=== PATIENT | male | born 1950 | race Caucasian/White ===

== ENCOUNTER 2021-10-25 08:52 | Emergency (ER) | payer OTHER ==
[~2021-10-25] VITALS: Ht 172.7 cm; Wt 136.4 kg
[2021-10-25 09:00] VITALS: BP 197/93
[2021-10-25] MEDS ORDERED: AMOX-580 PO (09:46)
== END 2021-10-25 10:04 | disposition home or self-care (01) ==
LOC: ER 08:53
DX: K04.7 Periapical abscess without sinus (principal); R68.84 Jaw pain; G89.29 Other chronic pain; Z79.2 Long term (current) use of antibiotics
CPT/HCPCS: 99283

== ENCOUNTER 2022-03-25 19:58 | Emergency (ER) | payer OTHER ==
[~2022-03-25] VITALS: Ht 175.3 cm; Wt 136.4 kg
[2022-03-25 20:30] LABS: BASOPHILS % (AUTO) 0.3 % (0-1); EOSINOPHILS # (AUTO) 0.1 X10'3 (0-0.9); EOSINOPHILS % (AUTO) 1.2 % (0-6); HEMATOCRIT 38.9 % (42.0-52.0); LYMPHOCYTES # (AUTO) 1.8 X10'3 (1.1-4.8); LYMPHOCYTES % (AUTO) 15.2 % (21-51); MEAN CORPUSCULAR HEMOGLOBIN 31.1 PG (27.0-31.0); MEAN CORPUSCULAR HGB CONC 33.5 g/dL (33.0-36.5); MEAN CORPUSCULAR VOLUME 92.9 FL (78-98); MEAN PLATELET VOLUME 8.9 FL (7.4-10.4); MONOCYTES # (AUTO) 0.7 X10'3 (0-0.9); MONOCYTES % (AUTO) 6.4 % (2-12); NEUTROPHILS # (AUTO) 8.9 X10'3 (1.8-7.7); NEUTROPHILS % (AUTO) 76.9 % (42-75); PLATELET COUNT 188 X10'3 (140-440); RED BLOOD COUNT 4.19 X10'6 (4.70-6.10); RED CELL DISTRIBUTION WIDTH 14.5 % (11.5-14.5); WHITE BLOOD COUNT 11.6 X10'3 (4.5-11.0)
[2022-03-25 20:46] LABS: ALANINE AMINOTRANSFERASE 48 U/L (12-78); ALBUMIN/GLOBULIN RATIO 1.1 (1.1-1.5); ALKALINE PHOSPHATASE 98 IU/L (46-116); ANION GAP 11 (8-16); ASPARTATE AMINO TRANSFERASE 32 U/L (10-37); BILIRUBIN,TOTAL 0.3 MG/DL (0.1-1.0); BLOOD UREA NITROGEN 32 MG/DL (7-18); BUN/CREATININE RATIO 19.2 (5.4-32.0); CALCIUM 9.7 MG/DL (8.5-10.1); CHLORIDE 107 MMOL/L (99-107); CREATININE 1.67 MG/DL (0.60-1.10); GLUCOSE 142 MG/DL (70-104); SODIUM 141 MMOL/L (135-145); TOTAL CARBON DIOXIDE 23.3 MMOL/L (24-32); TOTAL PROTEIN 7.7 G/DL (6.4-8.2); eGFR 41 ML/MIN
[2022-03-25] MEDS ORDERED: ondansetron 4mg rapidly disintigrating tab PO ONE (21:20)
[2022-03-25 22:12] LABS: CLARITY,URINE CLEAR (Clear); COLOR,URINE YELLOW (Yellow); GLUCOSE, URINE NEGATIVE (Neg); KETONES,URINE NEGATIVE (Neg); LEUKOCYTE ESTERASE ,URINE NEGATIVE (Neg); NITRITES, URINE NEGATIVE (Neg); OCCULT BLOOD,URINE TRACE-INTACT (Neg); PH,URINE 5.5 (4.8-8.0); PROTEIN,URINE 100 mg/dl (Neg); UROBILINOGEN,URINE 0.2 E.U/dL (0.2-1.0)
[2022-03-25 22:14] LABS: UA COLLECTION TYPE CLN CATCH MIDSTREAM
[2022-03-25 22:15] LABS: RBC,URINE 0-2 /HPF (0-2); SQUAMOUS EPITHELIAL CELL,UR NONE SEEN /LPF (FEW)
[2022-03-25 22:16] LABS: BACTERIA,URINE NONE SEEN /HPF (Neg); MUCUS STRANDS FEW /LPF (Neg); WBC,URINE NONE SEEN /HPF (0-4)
[2022-03-25] MEDS ORDERED: normal saline 1000ml 1,000 ML IV ONE (22:45)
[2022-03-25] MEDS ORDERED: bisacodyl 10mg suppository rectal RC ONE (22:45)
[2022-03-25] MEDS ORDERED: normal saline 1000ML IV soln IVB ONE (22:45)
[2022-03-25] MEDS ORDERED: LORazepam 2 mg/ml vial IV ONE (23:25)
[2022-03-25 23:54] VITALS: BP 177/96
[2022-03-26] MEDS ORDERED: methylnaltrexone br 12mg/0.6ml inj***SubQ only SQ ONE (01:10)
[2022-03-26] MEDS ORDERED: normal saline 1000ML IV soln IVB ONE (01:50)
== END 2022-03-26 03:16 | disposition home or self-care (01) ==
LOC: ER 19:59
DX: R10.9 Unspecified abdominal pain (principal); R11.2 Nausea with vomiting, unspecified; Z98.890 Other specified postprocedural states
CPT/HCPCS: 36415; 74018; 74176; 80053; 81001; 85025; 96361; 96372; 96374; 99285; J2060; J2212; J7030

== ENCOUNTER 2023-04-10 12:07 | Inpatient (IN) | payer OTHER ==
[~2023-04-10] VITALS: Ht 172.7 cm; Wt 127.3 kg
[2023-04-10 13:06] LABS: BASOPHILS % (AUTO) 0.2 % (0-1); EOSINOPHILS % (AUTO) 0.1 % (0-6); HEMOGLOBIN 14.9 g/dl (14.0-17.9); LYMPHOCYTES # (AUTO) 1.8 X10'3 (1.1-4.8); LYMPHOCYTES % (AUTO) 17.9 % (21-51); MEAN CORPUSCULAR HEMOGLOBIN 30.7 PG (27.0-31.0); MEAN CORPUSCULAR HGB CONC 33.1 g/dL (33.0-36.5); MEAN PLATELET VOLUME 8.8 FL (7.4-10.4); MONOCYTES # (AUTO) 0.8 X10'3 (0-0.9); MONOCYTES % (AUTO) 8.4 % (2-12); NEUTROPHILS # (AUTO) 7.3 X10'3 (1.8-7.7); NEUTROPHILS % (AUTO) 73.4 % (42-75); PLATELET COUNT 269 X10'3 (140-440); RED BLOOD COUNT 4.84 X10'6 (4.70-6.10); RED CELL DISTRIBUTION WIDTH 14.8 % (11.5-14.5); WHITE BLOOD COUNT 9.9 X10'3 (4.5-11.0)
[2023-04-10 13:10] LABS: ALANINE AMINOTRANSFERASE 37 U/L (12-78); ALBUMIN/GLOBULIN RATIO 0.9 (1.1-1.5); ALKALINE PHOSPHATASE 128 IU/L (46-116); ANION GAP 14 (8-16); ASPARTATE AMINO TRANSFERASE 31 U/L (10-37); BILIRUBIN,TOTAL 0.7 MG/DL (0.1-1.0); BLOOD UREA NITROGEN 33 MG/DL (7-18); BUN/CREATININE RATIO 20.8 (10.0-20.0); CALCIUM 10.4 MG/DL (8.5-10.1); CHLORIDE 101 MMOL/L (99-107); CREATININE 1.59 MG/DL (0.60-1.10); GLUCOSE 144 MG/DL (70-104); POTASSIUM 3.5 MMOL/L (3.5-5.1); SODIUM 137 MMOL/L (135-145); TOTAL CARBON DIOXIDE 22.5 MMOL/L (24-32); TOTAL PROTEIN 8.7 G/DL (6.4-8.2); eCRCL 39 ML/MIN; eGFR 43 ML/MIN
[2023-04-10 13:19] LABS: LIPASE 21 U/L (16-77)
[2023-04-10] MEDS ORDERED: ringers solution, lacted 1,000 ML IV ONE ×2 (14:55→17:15)
--- NOTE | 2023-04-10 15:20 | NUR ---
RN ATTEMPTING IV
[2023-04-10] MEDS ORDERED: iohexol 300mg/ml 100ml inj. ONE (15:41)
[2023-04-10] MEDS ORDERED: ondansetron/PF 4mg/2ml inj IM ONE (16:10)
--- NOTE | 2023-04-10 16:33 | NUR ---
ZOFRAN GIVEN IV. PER DR MIRIAN POOLE IM IN ERROR AND RN MAY ADMIN IV.
--- NOTE | 2023-04-10 16:35 | NUR ---
PT REQ PAIN MED. RN NOTIFIED DR VELA AND HE WILL PLACE ORD. PT TAKEN TO CT.
[2023-04-10 16:40] LABS: BILIRUBIN,URINE NEGATIVE (Neg); CLARITY,URINE CLOUDY (Clear); COLOR,URINE YELLOW (Yellow); GLUCOSE, URINE NEGATIVE (Neg); KETONES,URINE NEGATIVE (Neg); LEUKOCYTE ESTERASE ,URINE NEGATIVE (Neg); NITRITES, URINE NEGATIVE (Neg); OCCULT BLOOD,URINE MODERATE (Neg); PROTEIN,URINE >=300 mg/dl (Neg); UROBILINOGEN,URINE 0.2 E.U/dL (0.2-1.0)
[2023-04-10 16:41] LABS: UA COLLECTION TYPE CLN CATCH MIDSTREAM
[2023-04-10 16:51] LABS: SQUAMOUS EPITHELIAL CELL,UR FEW /LPF (FEW)
[2023-04-10 16:52] LABS: BACTERIA,URINE 1+ /HPF (Neg); HYALINE CASTS 0-3 /LPF (NEGATIVE); RBC,URINE 0-2 /HPF (0-2); WBC,URINE 0-4 /HPF (0-4)
[2023-04-10] MEDS ORDERED: piperacillin/tazo 4.5gm/100ml 100 ML IV ONE (17:18)
--- NOTE | 2023-04-10 17:40 | NUR ---
MD AT BEDSIDE. PER DR VELA DO NOT PLACE NGT UNLESS PT HAS VOMITING.
[2023-04-10] MEDS ORDERED: magnesium Cl slow-release 64mg tablet PO PRN (17:45)
[2023-04-10] MEDS ORDERED: mag hydrox/Alum hydrox/simeth 30ml oral suspension PO PRN (17:45)
[2023-04-10] MEDS ORDERED: potassium Cl 40MEQ/1/2NS 520ml 520 ML IV PRN (17:45)
[2023-04-10] MEDS: normal saline 1000ml 1,000 ML IV SCH ×2 (17:45→23:09)
[2023-04-10] MEDS ORDERED: potassium Cl 20 mEq SR tablet PO PRN ×2 (17:45)
[2023-04-10] MEDS ORDERED: bisacodyl 10mg suppository rectal RC PRN (17:45)
[2023-04-10] MEDS ORDERED: morphine 2 MG/ML inj. syringe IV PRN (17:45)
[2023-04-10] MEDS ORDERED: magnesium 2GM in 50ml NS 50 ML IV PRN (17:45)
[2023-04-10] MEDS ORDERED: acetaminophen 325mg tablet PO PRN (17:45)
[2023-04-10] MEDS ORDERED: magnesium hydroxide 30ml (MOM) UD suspension PO PRN (17:45)
[2023-04-10] MEDS ORDERED: magnesium 4gm in 100ml NS 100 ML IV PRN (17:45)
[2023-04-10] MEDS ORDERED: metoclopramide 5 mg/ml inj IV PRN (17:45)
--- NOTE | 2023-04-10 17:55 | NUR ---
[facility] RN NOTIFIED PHARMACIST. [facility] CLOSED ON SUN. PT KNOWS NAMES OF MEDS BUT NOT DOSE. PER PHARMACIST PHARMACY WILL BE CALLED [facility].
[2023-04-10 18:10] LABS: APTT 28 SECONDS (22-32); PROTHROMBIN TIME 11.1 SECONDS (9.0-12.0)
[2023-04-10 18:25] LABS: MAGNESIUM 2.3 MG/DL (1.5-2.4)
[2023-04-10 18:31] LABS: HEMOGLOBIN A1C 6.3 % (4.5-6.2)
[2023-04-10 19:09] LABS: TOTAL CELLS COUNTED 100
[2023-04-10 19:10] LABS: PLATELET ESTIMATE NORMAL
[2023-04-10 19:12] LABS: ANISOCYTOSIS 1+; MICROCYTOSIS FEW
[2023-04-10 19:14] LABS: SMUDGE CELLS FEW
[2023-04-10 19:15] LABS: LARGE PLATELETS FEW
[2023-04-10] MEDS: K and/or MAG REPLACEMENT MC SCH (19:49)
[2023-04-10] MEDS: hydrALAZINE 20mg/ml inj. IV PRN (21:09)
--- NOTE | 2023-04-10 21:48 | NUR ---
REPORT CALLED TO FLOOR NURSE PT TX TO ROOM 4009 BY TECH
--- NOTE | 2023-04-10 21:49 | NUR ---
Received report from Alvaro THAO nurse. Patients blood pressure is now down to 154/90, hR 56.
[2023-04-10 22:00] VITALS: RESP 16; O2SAT 97
--- NOTE | 2023-04-10 22:05 | NUR ---
Patient arrived to floor via gurney. A&O and in no obvious distress. Transferred himself from gurney to bed and vital signs initiated.
[2023-04-10 22:10] VITALS: BP 121/76; PULSE 63; RESP 16; TEMP 99.1; O2SAT 97
[2023-04-10] MEDS: heparin, porcine 5000 units/ml vial SQ SCH (23:27)
[2023-04-11] VITALS (25 sets, daily range): BP systolic 144–194; BP diastolic 81–101; PULSE 49–96; RESP 9–22; TEMP 97.8–98.2; O2SAT 92–98
[2023-04-11] MEDS ORDERED: morphine 2 MG/ML inj. syringe IV PRN ×2 (03:55→08:00)
--- NOTE | 2023-04-11 06:15 | NUR ---
Patient in room ORTHO 4009. I have received report from Zena COLLIER and had the opportunity to ask questions and assume patient care.
[2023-04-11 06:42] LABS: PROTHROMBIN TIME 11.1 SECONDS (9.0-12.0)
[2023-04-11 06:46] LABS: BASOPHILS % (AUTO) 0.4 % (0-1); EOSINOPHILS # (AUTO) 0.1 X10'3 (0-0.9); EOSINOPHILS % (AUTO) 0.8 % (0-6); HEMATOCRIT 37.6 % (42.0-52.0); HEMOGLOBIN 12.4 g/dl (14.0-17.9); LYMPHOCYTES # (AUTO) 2.3 X10'3 (1.1-4.8); LYMPHOCYTES % (AUTO) 25.7 % (21-51); MEAN CORPUSCULAR HEMOGLOBIN 30.5 PG (27.0-31.0); MEAN CORPUSCULAR HGB CONC 32.9 g/dL (33.0-36.5); MEAN CORPUSCULAR VOLUME 92.7 FL (78-98); MEAN PLATELET VOLUME 8.9 FL (7.4-10.4); MONOCYTES # (AUTO) 0.8 X10'3 (0-0.9); MONOCYTES % (AUTO) 9.4 % (2-12); NEUTROPHILS # (AUTO) 5.6 X10'3 (1.8-7.7); NEUTROPHILS % (AUTO) 63.7 % (42-75); PLATELET COUNT 211 X10'3 (140-440); RED BLOOD COUNT 4.06 X10'6 (4.70-6.10); RED CELL DISTRIBUTION WIDTH 15.1 % (11.5-14.5); WHITE BLOOD COUNT 8.9 X10'3 (4.5-11.0)
[2023-04-11 07:22] LABS: ALANINE AMINOTRANSFERASE 34 U/L (12-78); ALBUMIN 3.1 G/DL (3.4-5.0); ALBUMIN/GLOBULIN RATIO 0.9 (1.1-1.5); ALKALINE PHOSPHATASE 97 IU/L (46-116); ANION GAP 11 (8-16); ASPARTATE AMINO TRANSFERASE 42 U/L (10-37); BILIRUBIN,TOTAL 0.6 MG/DL (0.1-1.0); BLOOD UREA NITROGEN 31 MG/DL (7-18); BUN/CREATININE RATIO 20.1 (10.0-20.0); CALCIUM 9.2 MG/DL (8.5-10.1); CHLORIDE 106 MMOL/L (99-107); CHOL/HDL RATIO 2.5 (0.00-4.99); CHOLESTEROL 135 MG/DL (0-200); CREATININE 1.54 MG/DL (0.60-1.10); FREE T4 (FREE THYROXINE) 0.94 NG/DL (0.73-1.40); GLUCOSE 107 MG/DL (70-104); HDL CHOLESTEROL 53 MG/DL (35-60); LDL CHOLESTEROL 66 MG/DL (50-100); MAGNESIUM 2.1 MG/DL (1.5-2.4); POTASSIUM 3.7 MMOL/L (3.5-5.1); SODIUM 138 MMOL/L (135-145); THYROID STIMULATING HORMONE 0.83 ulU/ml (0.34-4.50); TOTAL CARBON DIOXIDE 20.9 MMOL/L (24-32); TOTAL PROTEIN 6.7 G/DL (6.4-8.2); TRIGLYCERIDES 80 MG/DL (20-135); eCRCL 41 ML/MIN; eGFR 44 ML/MIN
[2023-04-11] MEDS ORDERED: BUPIVAcaine/PF 2.5mg/ml (0.25%) 10ml vial ONE ×2 (07:32→08:36)
[2023-04-11] MEDS ORDERED: LIDOcaine 1% (10mg/ml)w/preservative inj. 20ml MDV ONE (07:32)
[2023-04-11] MEDS ORDERED: proCHLORperazine 10 MG/2 ml inj IV PRN (08:00)
[2023-04-11] MEDS ORDERED: ringers solution, lacted 1,000 ML IV SCH (08:00)
[2023-04-11] MEDS: K and/or MAG REPLACEMENT MC SCH (08:00)
[2023-04-11] MEDS ORDERED: morphine 4 MG/ML inj SYRINge IV PRN (08:00)
[2023-04-11] MEDS ORDERED: meperidine/PF 25mg/ml syringe IV PRN ×3 (08:00)
[2023-04-11] MEDS: heparin, porcine 5000 units/ml vial SQ SCH (08:00)
[2023-04-11] MEDS ORDERED: ondansetron/PF 4mg/2ml inj IV PRN (08:00)
[2023-04-11] MEDS ORDERED: sevoflurane 250ml liquid IH ONE (08:07)
[2023-04-11] MEDS ORDERED: midazolam 1 mg/ML 2ml injection ONE (08:10)
[2023-04-11] MEDS ORDERED: fentaNYL/PF 50MCG/1 ML 2ML syringe ONE (08:10)
[2023-04-11] MEDS ORDERED: BUPIVACAINE liposomal/PF 13.3 MG/ML vial IM ONE (08:37)
[2023-04-11] MEDS ORDERED: propofol inj 20 ML IV ONE (08:37)
[2023-04-11] MEDS ORDERED: rocuronium 10mg/ml inj IV ONE (08:37)
[2023-04-11] MEDS ORDERED: ceFAZolin 1000mg inj ONE ×3 (08:37)
[2023-04-11] MEDS ORDERED: ondansetron/PF 4mg/2ml inj ONE (09:11)
[2023-04-11] MEDS ORDERED: dexamethasone sod phosphate 4mg/ml inj. ONE (09:13)
[2023-04-11] MEDS ORDERED: glycopyrrolate 0.2mg/ml inj ONE (09:14)
[2023-04-11] MEDS ORDERED: neostigmine methylsulfate 1 MG/ML 10ml vial ONE (09:14)
--- NOTE | 2023-04-11 09:31 | NUR ---
Received from OR via BED IN STABLE CONDITION , accompanied by Anesthesiologist and CANNERY WORKER report given by CANNERY WORKER AND Anesthesiologist. Addendum: 04/11/23 at 0943 by Chika Peace RN Amended: Links added.
[2023-04-11] MEDS ORDERED: naloxone 0.4 mg/ml inj IV PRN (09:35)
[2023-04-11] MEDS ORDERED: oxyCODONE/APAP 10/325mg tablet PO PRN (09:35)
[2023-04-11] MEDS ORDERED: CAPS57CR5 TP (10:28)
[2023-04-11] MEDS ORDERED: ATOR40TA7 PO (10:28)
[2023-04-11] MEDS ORDERED: BACL-11 PO (10:28)
[2023-04-11] MEDS ORDERED: ALLO300T2 PO (10:28)
[2023-04-11] MEDS ORDERED: LIDO700A32 TOP (10:50)
[2023-04-11] MEDS ORDERED: KETO-96 EACHEYE (10:50)
[2023-04-11] MEDS ORDERED: MORP-92 PO (10:50)
[2023-04-11] MEDS ORDERED: FLUT16SP8 BOTHNARES (10:50)
[2023-04-11] MEDS ORDERED: FLO0.4C PO (10:50)
[2023-04-11] MEDS ORDERED: TADA5TAB2 PO (10:50)
[2023-04-11] MEDS ORDERED: CETI10TA19 PO (10:50)
[2023-04-11] MEDS ORDERED: HYDR-3973 PO (10:50)
[2023-04-11] MEDS ORDERED: LYR25C PO (10:50)
[2023-04-11] MEDS ORDERED: LAMO150T6 PO (10:50)
[2023-04-11] MEDS ORDERED: LIDO15CR11 TOP (10:50)
[2023-04-11] MEDS ORDERED: LOSA50TA64 PO (10:50)
[2023-04-11] MEDS ORDERED: METO-384 PO (10:50)
[2023-04-11] MEDS ORDERED: OMEP20CA16 PO (10:50)
[2023-04-11] MEDS ORDERED: COLC0.6T72 PO (10:50)
[2023-04-11] MEDS ORDERED: CHOL20002 PO (10:50)
[2023-04-11] MEDS ORDERED: SENN-263 PO (10:50)
[2023-04-11] MEDS ORDERED: MAGN400O6 PO (10:50)
--- NOTE | 2023-04-11 11:00 | NUR ---
received report from Ophelia COLLIER from recovery
--- NOTE | 2023-04-11 11:01 | NUR ---
PATIENT DISCHARGED FROM PACU IN STABLE CONDITION AFTER REPORT GIVEN TO RN TAKING OVER PATIENTS CARE. PATIENT TRANSFERRED TO ROOM 4009A VIA BED WITH RN AND VOLUNTEER. Addendum: 04/11/23 at 1116 by Chika Peace RN Amended: Links added.
--- NOTE | 2023-04-11 11:41 | NUR ---
Spoke with ANA from Dr. Centeno office regarding this patient. They need to have face sheet faxed to the office at [phone] and preferred pharmacy. Per patient pharmacy is [facility] on [address]
[2023-04-11] MEDS: hydrALAZINE 20mg/ml inj. IV PRN (13:44)
--- NOTE | 2023-04-11 14:25 | NUR ---
PAGER ID: [phone] MESSAGE: [id number]- Lyly Pineda- Per Dr. Centeno patient can be discharged. Hospitalist is to discharge pt. pls advise? KENDRICK Styles [phone]
--- NOTE | 2023-04-11 15:01 | NUR ---
PAGER ID: [phone] MESSAGE: [id number]- yLly Pineda- pt walked 75ft with FWW with nursing, baseline is with crutches. pls advise? Eddy rodriguez [phone]
--- NOTE | 2023-04-11 16:00 | NUR ---
I have reviewed and agree with interventions, assessments and documentation by Stephani Looney LVN
--- NOTE | 2023-04-11 16:15 | NUR ---
Patient discharged home today. All instructions were explained and all questions were answered. IV removed and all belongings gathered. Patient alert and appropriate for discharge. Patient wheeled downstairs and into private vehicle with .
== END 2023-04-11 16:25 | disposition home or self-care (01) | DRG 354 ==
LOC: ER 12:07 → ED HOLD 17:51 → ORTHO 4S 22:05
PROVIDERS: ADMIT Student in an Organized Health Care Education/Training Program; ATTEND Student in an Organized Health Care Education/Training Program
PROC: 3E0T3BZ Introduction of Anesthetic Agent into Peripheral Nerves and Plexi, Percutaneous Approach (ICD-10-PCS; 2023-04-11)
PROC: 8E0W4CZ Robotic Assisted Procedure of Trunk Region, Percutaneous Endoscopic Approach (ICD-10-PCS; 2023-04-11)
PROC: 5A09357 Assistance with Respiratory Ventilation, Less than 24 Consecutive Hours, Continuous Positive Airway Pressure (ICD-10-PCS; 2023-04-11)
PROC: 0WUF4JZ Supplement Abdominal Wall with Synthetic Substitute, Percutaneous Endoscopic Approach (ICD-10-PCS; principal; 2023-04-11 08:07)
DX: K42.0 Umbilical hernia with obstruction, without gangrene (principal); Z68.41 Body mass index [BMI] 40.0-44.9, adult; G89.4 Chronic pain syndrome; M54.9 Dorsalgia, unspecified; N18.30 Chronic kidney disease, stage 3 unspecified; K74.60 Unspecified cirrhosis of liver; E83.52 Hypercalcemia; F11.10 Opioid abuse, uncomplicated; I12.9 Hypertensive chronic kidney disease with stage 1 through stage 4 chronic kidney disease, or unspecified chronic kidney disease; Z90.49 Acquired absence of other specified parts of digestive tract
CPT/HCPCS: 36415; 71045; 74177; 80053; 80061; 81001; 82948; 83036; 83605; 83690; 83735; 84100; 84145; 84439; 84443; 85007; 85025; 85610; 85730; 87081; 94660; 94760; 96360; 96372; 99291; A4215; A4618; C1781; C9290; G0378; J0360; J0690; J1100; J1644; J2250; J2270; J2405; J2543; J2704; J2710; J3010; J3490; J7030; J7120; Q9967

== ENCOUNTER 2024-06-25 13:45 | Inpatient (IN) | payer OTHER, MEDICARE ==
[2024-06-25] VITALS (9 sets, daily range): BP systolic 128–151; BP diastolic 69–97; PULSE 75–130; RESP 17–26; O2SAT 92–100
[~2024-06-25] VITALS: Ht 177.8 cm; Wt 132.2 kg
[~2024-06-25 13:45] MED LIST: ALLO300T2 PO; ATOR-411 PO; BACL-11 PO; CAPS57CR5 TP; CEFD300C3 PO; CETI10TA19 PO; CHOL20002 PO; FLO0.4C PO; FLUT16SP8 BOTHNARES; FURO40TA4 PO; HYDR-3973 PO; KETO-96 EACHEYE; LIDO700A32 TOP; LOSA-415 PO; LOSA50TA64 PO; METO-384 PO; MORP-92 PO; OMEP20CA16 PO; SACC250C PO; SENN-360 PO
[2024-06-25] MEDS ORDERED: propofol 1000mg/100ml bottle 100 ML IV SCH (14:00)
[2024-06-25] MEDS: propofol 1000mg/100ml bottle 100 ML IV SCH (14:08)
[2024-06-25 14:16] LABS: ABG BASE EXCESS -7.3 mmol/L (-2.0-3.0); ABG OXYGEN SATURATION 98.1 % (94.0-98.0); ABG PCO2 (T) 31.3 mmHg (35.0-48.0); ABG PH (T) 7.353 (7.350-7.450); ABG PO2 (T) 105.1 mmHg (83.0-108.0); ALLEN'S TEST POSITIVE; FCOHb 0.7 % (0.5-1.5); FHHb 1.9 % (0.0-5.0); FMetHb 0.3 % (0.0-1.5); FO2Hb 97.1 % (94.0-98.0); TOTAL HEMOGLOBIN 13.6 G/dl (13.5-17.5)
[2024-06-25 14:23] LABS: BASOPHILS % (AUTO) 0.3 % (0-1); EOSINOPHILS # (AUTO) 0.1 X10'3 (0-0.9); EOSINOPHILS % (AUTO) 1.4 % (0-6); HEMATOCRIT 38.6 % (42.0-52.0); HEMOGLOBIN 12.7 g/dl (14.0-17.9); LYMPHOCYTES # (AUTO) 2.2 X10'3 (1.1-4.8); LYMPHOCYTES % (AUTO) 29.8 % (21-51); MEAN CORPUSCULAR HEMOGLOBIN 31.9 PG (27.0-31.0); MEAN CORPUSCULAR HGB CONC 32.9 g/dL (33.0-36.5); MONOCYTES # (AUTO) 0.7 X10'3 (0-0.9); MONOCYTES % (AUTO) 9.1 % (2-12); NEUTROPHILS # (AUTO) 4.4 X10'3 (1.8-7.7); NEUTROPHILS % (AUTO) 59.4 % (42-75); PLATELET COUNT 272 X10'3 (140-440); RED BLOOD COUNT 3.98 X10'6 (4.70-6.10); RED CELL DISTRIBUTION WIDTH 15.5 % (11.5-14.5); WHITE BLOOD COUNT 7.3 X10'3 (4.5-11.0)
[2024-06-25] MEDS: LORazepam 2 mg/ml vial IV ONE (14:41)
[2024-06-25] MEDS ORDERED: iohexol 350MG/ML 100ml bottle IV ONE (15:00)
[2024-06-25 15:07] LABS: BILIRUBIN,URINE NEGATIVE (Neg); CLARITY,URINE CLEAR (Clear); COLOR,URINE YELLOW (Yellow); GLUCOSE, URINE NEGATIVE (Neg); KETONES,URINE NEGATIVE (Neg); LEUKOCYTE ESTERASE ,URINE NEGATIVE (Neg); NITRITES, URINE NEGATIVE (Neg); OCCULT BLOOD,URINE SMALL (Neg); PROTEIN,URINE >=300 mg/dl (Neg); UROBILINOGEN,URINE 0.2 E.U/dL (0.2-1.0)
[2024-06-25 15:09] LABS: UA COLLECTION TYPE FOLEY CATH
[2024-06-25] MEDS: FENTANYL-0.9 % NACL/PF 100 ML IV SCH (15:09)
[2024-06-25 15:10] LABS: ALBUMIN 3.3 G/DL (3.4-5.0); ANION GAP 17 (8-16); BLOOD UREA NITROGEN 19 MG/DL (7-18); BUN/CREATININE RATIO 11.4 (10.0-20.0); CALCIUM 9.2 MG/DL (8.5-10.1); CHLORIDE 108 MMOL/L (99-107); CREATININE 1.66 MG/DL (0.60-1.10); GLUCOSE 148 MG/DL (70-104); POTASSIUM 3.6 MMOL/L (3.5-5.1); PRO BRAIN NATRIURETIC PEPTIDE 430 PG/ML (0-450); SODIUM 142 MMOL/L (135-145); TOTAL CARBON DIOXIDE 16.9 MMOL/L (24-32); eCRCL 39 ML/MIN; eGFR 40 ML/MIN
[2024-06-25] MEDS ORDERED: magnesium hydroxide 30ml (MOM) UD suspension PO PRN (15:20)
[2024-06-25] MEDS ORDERED: acetaminophen 325mg tablet PO PRN ×2 (15:20)
[2024-06-25] MEDS ORDERED: ondansetron/PF 4mg/2ml inj IV PRN (15:20)
[2024-06-25 15:24] LABS: BACTERIA,URINE NONE SEEN /HPF (Neg); FINE GRANULAR CAST 0-3 /LPF (NEGATIVE); MUCUS STRANDS FEW /LPF (Neg); SQUAMOUS EPITHELIAL CELL,UR FEW /LPF (FEW); WBC,URINE 0-4 /HPF (0-4)
[2024-06-25] MEDS ORDERED: azithromycin/NS 500mg/250ml 250 ML IV SCH (15:50)
[2024-06-25] MEDS: normal saline 1000ml 1,000 ML IV SCH (15:50)
[2024-06-25] MEDS: LidoCAINE 2% Topical Jelly 11mL syringe (UROJET) TOP ONE (16:03)
[2024-06-25] MEDS: piperacillin/tazo 3.375gm/50ml 50 ML IV ONE (16:11)
[2024-06-25] MEDS: vancomycin/NS 1 GM ADD-VANTAGE 250 ML X 1 DOSE IV ONE (16:11)
[2024-06-25] MEDS: ringers solution, lactated 1000ml IV soln IV ONE (16:11)
[2024-06-25] MEDS: normal saline 1000ML IV soln IVB ONE ×2 (16:12→17:49)
[2024-06-25 17:10] LABS: THYROID STIMULATING HORMONE 1.91 ulU/ml (0.34-4.50)
[2024-06-25] MEDS: azithromycin/NS 500mg/250ml 250 ML IV ONE (17:50)
[2024-06-25] MEDS ORDERED: heparin, porcine 5000 units/ml vial SQ SCH (18:00)
[2024-06-25] MEDS ORDERED: rocuronium 10mg/ml inj IV ONE (18:00)
[2024-06-25 18:22] LABS: URINE AMPHETAMINE SCREEN NEGATIVE (Neg); URINE BARBITUATE SCREEN NEGATIVE (Neg); URINE BENZODIAZEPINES SCREEN NEGATIVE (Neg); URINE CANNABINOID SCREEN NEGATIVE (Neg); URINE COCAINE SCREEN NEGATIVE (Neg); URINE METHADONE SCREEN NEGATIVE (Neg); URINE OPIATE SCREEN POSITIVE (Neg); URINE PHENCYCLIDINE SCREEN NEGATIVE (Neg)
[2024-06-25] MEDS: enoxaparin 40mg/0.4ml syringe SUBCUT SCH (20:30)
[2024-06-25] MEDS: methylPREDNISolone sod succ 125mg/2ml vial IV SCH (20:30)
[2024-06-26] VITALS (37 sets, daily range): BP systolic 112–150; BP diastolic 58–91; PULSE 54–74; RESP 16–22; O2SAT 91–98
[2024-06-26 03:31] LABS: ABG BASE EXCESS -5.6 mmol/L (-2.0-3.0); ABG HCO3 18.4 mmol/L (21.0-28.0); ABG OXYGEN SATURATION 96.1 % (94.0-98.0); ABG PCO2 (T) 30.2 mmHg (35.0-48.0); ABG PH (T) 7.398 (7.350-7.450); ABG PO2 (T) 71.4 mmHg (83.0-108.0); ALLEN'S TEST Modified; FCOHb 0.5 % (0.5-1.5); FHHb 3.9 % (0.0-5.0); FMetHb 0.3 % (0.0-1.5); FO2Hb 95.3 % (94.0-98.0); MODE ac/prvc; PATIENT TEMPERATURE 36.1; PEEP 5 cm H2O; RESPIRATORY RATE 18 b/min; TIDAL VOLUME 500 mL; TOTAL HEMOGLOBIN 12.2 G/dl (13.5-17.5)
[2024-06-26 03:44] LABS: BASOPHILS % (AUTO) 0.1 % (0-1); EOSINOPHILS % (AUTO) 0 % (0-6); HEMATOCRIT 34.5 % (42.0-52.0); HEMOGLOBIN 11.6 g/dl (14.0-17.9); LYMPHOCYTES # (AUTO) 0.6 X10'3 (1.1-4.8); MEAN CORPUSCULAR HEMOGLOBIN 31.8 PG (27.0-31.0); MEAN CORPUSCULAR HGB CONC 33.6 g/dL (33.0-36.5); MEAN CORPUSCULAR VOLUME 94.7 FL (78-98); MEAN PLATELET VOLUME 8.2 FL (7.4-10.4); MONOCYTES # (AUTO) 0.4 X10'3 (0-0.9); MONOCYTES % (AUTO) 2.4 % (2-12); NEUTROPHILS # (AUTO) 14.9 X10'3 (1.8-7.7); NEUTROPHILS % (AUTO) 93.5 % (42-75); PLATELET COUNT 218 X10'3 (140-440); RED BLOOD COUNT 3.65 X10'6 (4.70-6.10); RED CELL DISTRIBUTION WIDTH 15.4 % (11.5-14.5); WHITE BLOOD COUNT 15.9 X10'3 (4.5-11.0)
[2024-06-26 03:55] LABS: INR 1.1 INR; PROTHROMBIN TIME 11.9 SECONDS (9.0-12.0)
[2024-06-26 03:58] LABS: ALANINE AMINOTRANSFERASE 34 U/L (12-78); ALBUMIN 2.7 G/DL (3.4-5.0); ALBUMIN/GLOBULIN RATIO 0.8 (1.1-1.5); ALKALINE PHOSPHATASE 89 IU/L (46-116); ANION GAP 12 (8-16); ASPARTATE AMINO TRANSFERASE 31 U/L (10-37); BILIRUBIN,TOTAL 0.5 MG/DL (0.1-1.0); BLOOD UREA NITROGEN 16 MG/DL (7-18); BUN/CREATININE RATIO 11.6 (10.0-20.0); CALCIUM 8.3 MG/DL (8.5-10.1); CHLORIDE 110 MMOL/L (99-107); CREATININE 1.38 MG/DL (0.60-1.10); GLUCOSE 144 MG/DL (70-104); MAGNESIUM 1.5 MG/DL (1.5-2.4); PHOSPHORUS 3.6 MG/DL (2.3-4.5); POTASSIUM 3.7 MMOL/L (3.5-5.1); SODIUM 142 MMOL/L (135-145); TOTAL CARBON DIOXIDE 19.9 MMOL/L (24-32); TOTAL PROTEIN 6.1 G/DL (6.4-8.2); eCRCL 47 ML/MIN; eGFR 50 ML/MIN
[2024-06-26] MEDS: pantoprazole 40 MG vial IV SCH (07:44)
[2024-06-26] MEDS: CefTRIAXone/D5W-Rocephin 1gm 50 ML IV SCH (07:44)
[2024-06-26] MEDS: azithromycin/NS 500mg/250ml 250 ML IV SCH (07:46)
[2024-06-26] MEDS ORDERED: REMDESIVIR INJ (loading dose) 100 MG in normal saline 100ml IV soln 100 ML IV SCH (10:40)
[2024-06-26] MEDS ORDERED: COLC0.6T72 PO (11:41)
[2024-06-26] MEDS: REMDESIVIR 200 MG in NS 100ml IVPB Loading dose IV ONE (11:49)
[2024-06-26] MEDS: COMMUNICATION ORDER 1 EA MISC MC ONE (12:10)
[2024-06-27] VITALS (26 sets, daily range): BP systolic 117–191; BP diastolic 60–97; PULSE 54–97; RESP 14–21; TEMP 95.6–99; O2SAT 92–98
[2024-06-27 03:11] LABS: ABG BASE EXCESS -5.9 mmol/L (-2.0-3.0); ABG HCO3 18.3 mmol/L (21.0-28.0); ABG OXYGEN SATURATION 94.5 % (94.0-98.0); ABG PCO2 (T) 30.8 mmHg (35.0-48.0); ABG PH (T) 7.389 (7.350-7.450); ABG PO2 (T) 69.1 mmHg (83.0-108.0); ALLEN'S TEST Modified; FCOHb 0.3 % (0.5-1.5); FHHb 5.5 % (0.0-5.0); FMetHb 0.3 % (0.0-1.5); FO2Hb 93.9 % (94.0-98.0); MODE AC/PRVC; PATIENT TEMPERATURE 36.4; PEEP 5 cm H2O; RESPIRATORY RATE 18 b/min; TIDAL VOLUME 500 mL; TOTAL HEMOGLOBIN 11.7 G/dl (13.5-17.5)
[2024-06-27 03:46] LABS: BASOPHILS % (AUTO) 0.1 % (0-1); EOSINOPHILS % (AUTO) 0.2 % (0-6); HEMATOCRIT 32.9 % (42.0-52.0); LYMPHOCYTES # (AUTO) 0.8 X10'3 (1.1-4.8); MEAN CORPUSCULAR HEMOGLOBIN 31.9 PG (27.0-31.0); MEAN CORPUSCULAR HGB CONC 33.3 g/dL (33.0-36.5); MEAN CORPUSCULAR VOLUME 95.9 FL (78-98); MEAN PLATELET VOLUME 9.1 FL (7.4-10.4); MONOCYTES # (AUTO) 0.4 X10'3 (0-0.9); MONOCYTES % (AUTO) 2.8 % (2-12); NEUTROPHILS # (AUTO) 11.7 X10'3 (1.8-7.7); NEUTROPHILS % (AUTO) 90.9 % (42-75); PLATELET COUNT 210 X10'3 (140-440); RED BLOOD COUNT 3.43 X10'6 (4.70-6.10); RED CELL DISTRIBUTION WIDTH 15.5 % (11.5-14.5); WHITE BLOOD COUNT 12.9 X10'3 (4.5-11.0)
[2024-06-27 03:57] LABS: INR 1.1 INR; PROTHROMBIN TIME 11.9 SECONDS (9.0-12.0)
[2024-06-27 04:01] LABS: ALANINE AMINOTRANSFERASE 28 U/L (12-78); ALBUMIN 2.4 G/DL (3.4-5.0); ALBUMIN/GLOBULIN RATIO 0.7 (1.1-1.5); ALKALINE PHOSPHATASE 82 IU/L (46-116); ANION GAP 12 (8-16); ASPARTATE AMINO TRANSFERASE 23 U/L (10-37); BILIRUBIN,TOTAL 0.2 MG/DL (0.1-1.0); BLOOD UREA NITROGEN 32 MG/DL (7-18); BUN/CREATININE RATIO 20.6 (10.0-20.0); CALCIUM 7.8 MG/DL (8.5-10.1); CHLORIDE 110 MMOL/L (99-107); CREATININE 1.55 MG/DL (0.60-1.10); GLUCOSE 169 MG/DL (70-104); PHOSPHORUS 4.1 MG/DL (2.3-4.5); POTASSIUM 3.8 MMOL/L (3.5-5.1); SODIUM 142 MMOL/L (135-145); TOTAL CARBON DIOXIDE 19.8 MMOL/L (24-32); TOTAL PROTEIN 5.9 G/DL (6.4-8.2); eCRCL 42 ML/MIN; eGFR 44 ML/MIN
[2024-06-27 04:05] LABS: MAGNESIUM 1.6 MG/DL (1.5-2.4)
[2024-06-27] MEDS ORDERED: UNABLE TO OBTAIN (07:49)
[2024-06-27] MEDS: NS IV SCH (08:12)
[2024-06-27] MEDS: REMDESIVIR IV SCH (08:12)
[2024-06-27] MEDS: morphine 2 MG/ML inj. syringe IV PRN (10:35)
[2024-06-27] MEDS ORDERED: acetaminophen 325mg/10.15ml oral unit dose solution OGT PRN (10:42)
[2024-06-27] MEDS: hydrALAZINE 20mg/ml inj. IV PRN (11:05)
[2024-06-27] MEDS: docusate sodium 100mg/10ml UD cup OGT SCH (12:43)
[2024-06-27] MEDS: methylPREDNISolone sod succ 125mg/2ml vial IV SCH (13:04)
[2024-06-27] MEDS: methylPREDNISolone sod succ/PF 40mg inj. IV SCH (14:00)
[2024-06-27] MEDS ORDERED: sennosides 8.6mg tablet PO PRN (16:05)
[2024-06-27] MEDS ORDERED: DEXTROSE 15 GM of carb/4 tabs (each vial/BOTTLE has 4 tablets) PO PRN ×2 (16:10)
[2024-06-27] MEDS ORDERED: glucagon, human recombinant 1mg kit SUBCUT PRN (16:10)
[2024-06-27] MEDS ORDERED: dextrose 50%-water 50ml dispensing syringe IV PRN ×2 (16:10)
[2024-06-27] MEDS: losartan 50mg tablet PO SCH (16:51)
[2024-06-27] MEDS: metoprolol succinate 25mg (24-HOUR) SR. Tablet PO SCH (16:51)
[2024-06-27] MEDS: INSULIN LISPRO 100 UNIT/ML INSULN.PEN MULTI-DOSE SQ SCH (17:00)
[2024-06-27 17:49] LABS: OSMOLALITY 303 MOSM/K (280-300)
[2024-06-27] MEDS: morphine 4 MG/ML inj SYRINge IV PRN (18:24)
[2024-06-28] VITALS (8 sets, daily range): BP systolic 153–192; BP diastolic 64–92; PULSE 62–74; RESP 18–22; TEMP 96.2–98.4; O2SAT 94–96
[2024-06-28 05:34] LABS: BASOPHILS % (AUTO) 0 % (0-1); EOSINOPHILS % (AUTO) 0 % (0-6); HEMATOCRIT 33.2 % (42.0-52.0); HEMOGLOBIN 11.1 g/dl (14.0-17.9); LYMPHOCYTES # (AUTO) 0.8 X10'3 (1.1-4.8); LYMPHOCYTES % (AUTO) 5.1 % (21-51); MEAN CORPUSCULAR HEMOGLOBIN 31.8 PG (27.0-31.0); MEAN CORPUSCULAR HGB CONC 33.4 g/dL (33.0-36.5); MEAN CORPUSCULAR VOLUME 95.2 FL (78-98); MONOCYTES # (AUTO) 0.6 X10'3 (0-0.9); MONOCYTES % (AUTO) 3.9 % (2-12); PLATELET COUNT 219 X10'3 (140-440); RED BLOOD COUNT 3.49 X10'6 (4.70-6.10); RED CELL DISTRIBUTION WIDTH 15.6 % (11.5-14.5); WHITE BLOOD COUNT 15.4 X10'3 (4.5-11.0)
[2024-06-28 05:52] LABS: INR 1.1 INR; PROTHROMBIN TIME 11.7 SECONDS (9.0-12.0)
[2024-06-28 05:59] LABS: ALANINE AMINOTRANSFERASE 38 U/L (12-78); ALBUMIN 2.6 G/DL (3.4-5.0); ALBUMIN/GLOBULIN RATIO 0.8 (1.1-1.5); ALKALINE PHOSPHATASE 87 IU/L (46-116); ANION GAP 13 (8-16); ASPARTATE AMINO TRANSFERASE 34 U/L (10-37); BILIRUBIN,TOTAL 0.3 MG/DL (0.1-1.0); BLOOD UREA NITROGEN 42 MG/DL (7-18); BUN/CREATININE RATIO 27.6 (10.0-20.0); CHLORIDE 112 MMOL/L (99-107); CREATININE 1.52 MG/DL (0.60-1.10); GLUCOSE 135 MG/DL (70-104); MAGNESIUM 1.6 MG/DL (1.5-2.4); PHOSPHORUS 3.7 MG/DL (2.3-4.5); POTASSIUM 3.7 MMOL/L (3.5-5.1); SODIUM 142 MMOL/L (135-145); TOTAL CARBON DIOXIDE 17.5 MMOL/L (24-32); TOTAL PROTEIN 5.9 G/DL (6.4-8.2); eCRCL 43 ML/MIN; eGFR 45 ML/MIN
[2024-06-28] MEDS: tamsulosin 0.4mg capsule PO SCH (09:13)
[2024-06-28] MEDS: azithromycin 250mg tablet PO SCH (09:14)
[2024-06-28] MEDS: pantoprazole 40mg Tablet.DR PO SCH (09:14)
[2024-06-28] MEDS: allopurinol 300 MG tablet PO SCH (09:14)
[2024-06-28 10:30] LABS: TOTAL PROTEIN,URINE RANDOM 178.7 MG/DL
[2024-06-28] MEDS: cholecalciferol (vitamin D3) 1,000 unit (25mcg) tablet PO SCH (11:41)
[2024-06-28] MEDS: atorvastatin 20mg tablet PO SCH (11:42)
[2024-06-28] MEDS ORDERED: albuterol 2.5 MG/3 ML nebule NEB SCH (14:00)
[2024-06-28] MEDS: albuterol 60 PUFF/8GM Inhaler (90mcg/1 puff) IH SCH (15:53)
[2024-06-28] MEDS: amLODIPine 5mg tablet PO SCH (20:00)
[2024-06-28] MEDS: LORazepam 2 mg/ml vial IV ONE ×2 (20:41→23:24)
[2024-06-28] MEDS: methylPREDNISolone sod succ/PF 40mg inj. IV SCH (23:38)
[2024-06-29] VITALS (10 sets, daily range): BP systolic 130–180; BP diastolic 77–95; PULSE 62–88; RESP 18–22; TEMP 98.4–98.7; O2SAT 92–94
[2024-06-29 04:56] LABS: BASOPHILS % (AUTO) 0.3 % (0-1); EOSINOPHILS % (AUTO) 0 % (0-6); HEMOGLOBIN 11.7 g/dl (14.0-17.9); LYMPHOCYTES # (AUTO) 0.7 X10'3 (1.1-4.8); LYMPHOCYTES % (AUTO) 5.4 % (21-51); MEAN CORPUSCULAR HEMOGLOBIN 31.7 PG (27.0-31.0); MEAN CORPUSCULAR HGB CONC 33.3 g/dL (33.0-36.5); MEAN CORPUSCULAR VOLUME 95.3 FL (78-98); MONOCYTES # (AUTO) 0.6 X10'3 (0-0.9); MONOCYTES % (AUTO) 4.7 % (2-12); NEUTROPHILS # (AUTO) 11.3 X10'3 (1.8-7.7); NEUTROPHILS % (AUTO) 89.6 % (42-75); PLATELET COUNT 234 X10'3 (140-440); RED BLOOD COUNT 3.68 X10'6 (4.70-6.10); RED CELL DISTRIBUTION WIDTH 15.7 % (11.5-14.5); WHITE BLOOD COUNT 12.6 X10'3 (4.5-11.0)
[2024-06-29 05:08] LABS: INR 1.2 INR; PROTHROMBIN TIME 12.3 SECONDS (9.0-12.0)
[2024-06-29 05:19] LABS: ALANINE AMINOTRANSFERASE 53 U/L (12-78); ALBUMIN 2.6 G/DL (3.4-5.0); ALBUMIN/GLOBULIN RATIO 0.8 (1.1-1.5); ALKALINE PHOSPHATASE 92 IU/L (46-116); ANION GAP 11 (8-16); ASPARTATE AMINO TRANSFERASE 54 U/L (10-37); BILIRUBIN,TOTAL 0.5 MG/DL (0.1-1.0); BLOOD UREA NITROGEN 40 MG/DL (7-18); BUN/CREATININE RATIO 26.5 (10.0-20.0); C-REACTIVE PROTEIN 2.39 MG/DL (0.0-0.5); CALCIUM 8.3 MG/DL (8.5-10.1); CHLORIDE 113 MMOL/L (99-107); CREATININE 1.51 MG/DL (0.60-1.10); GLUCOSE 137 MG/DL (70-104); MAGNESIUM 1.8 MG/DL (1.5-2.4); PHOSPHORUS 3.2 MG/DL (2.3-4.5); POTASSIUM 3.7 MMOL/L (3.5-5.1); SODIUM 143 MMOL/L (135-145); TOTAL CARBON DIOXIDE 18.6 MMOL/L (24-32); eCRCL 43 ML/MIN; eGFR 45 ML/MIN
[2024-06-29] MEDS: hydrALAZINE 20mg/ml inj. IV ONE (09:40)
[2024-06-29] MEDS: allopurinol 100mg tablet PO SCH (09:40)
[2024-06-29] MEDS: lactose-reduced food (Ensure Enlive) - 237ml bottle PO SCH (18:04)
[2024-06-29] MEDS ORDERED: levoFLOXACIN 250mg tablet PO SCH (19:00)
[2024-06-30] VITALS (9 sets, daily range): BP systolic 116–173; BP diastolic 57–97; PULSE 65–85; RESP 16–74; TEMP 97.9–99; O2SAT 21–99
[2024-06-30 06:55] LABS: BASOPHILS % (AUTO) 0.2 % (0-1); EOSINOPHILS % (AUTO) 0 % (0-6); HEMATOCRIT 37.3 % (42.0-52.0); HEMOGLOBIN 12.5 g/dl (14.0-17.9); LYMPHOCYTES # (AUTO) 1.1 X10'3 (1.1-4.8); LYMPHOCYTES % (AUTO) 11.1 % (21-51); MEAN CORPUSCULAR HEMOGLOBIN 31.8 PG (27.0-31.0); MEAN CORPUSCULAR HGB CONC 33.6 g/dL (33.0-36.5); MEAN CORPUSCULAR VOLUME 94.5 FL (78-98); MEAN PLATELET VOLUME 9.1 FL (7.4-10.4); MONOCYTES # (AUTO) 0.8 X10'3 (0-0.9); MONOCYTES % (AUTO) 8.3 % (2-12); NEUTROPHILS # (AUTO) 8.2 X10'3 (1.8-7.7); NEUTROPHILS % (AUTO) 80.4 % (42-75); PLATELET COUNT 224 X10'3 (140-440); RED BLOOD COUNT 3.95 X10'6 (4.70-6.10); RED CELL DISTRIBUTION WIDTH 15.4 % (11.5-14.5); WHITE BLOOD COUNT 10.2 X10'3 (4.5-11.0)
[2024-06-30 07:14] LABS: INR 1.2 INR; PROTHROMBIN TIME 12.4 SECONDS (9.0-12.0)
[2024-06-30 07:18] LABS: ALANINE AMINOTRANSFERASE 64 U/L (12-78); ALBUMIN 2.7 G/DL (3.4-5.0); ALBUMIN/GLOBULIN RATIO 0.8 (1.1-1.5); ALKALINE PHOSPHATASE 91 IU/L (46-116); ANION GAP 12 (8-16); ASPARTATE AMINO TRANSFERASE 55 U/L (10-37); BILIRUBIN,TOTAL 0.5 MG/DL (0.1-1.0); BLOOD UREA NITROGEN 34 MG/DL (7-18); CALCIUM 8.3 MG/DL (8.5-10.1); CHLORIDE 111 MMOL/L (99-107); CREATININE 1.36 MG/DL (0.60-1.10); GLUCOSE 133 MG/DL (70-104); MAGNESIUM 1.6 MG/DL (1.5-2.4); PHOSPHORUS 3.3 MG/DL (2.3-4.5); POTASSIUM 3.7 MMOL/L (3.5-5.1); SODIUM 142 MMOL/L (135-145); TOTAL CARBON DIOXIDE 19.2 MMOL/L (24-32); eCRCL 48 ML/MIN; eGFR 51 ML/MIN
[2024-06-30 07:28] LABS: C-REACTIVE PROTEIN 1.42 MG/DL (0.0-0.5)
[2024-06-30] MEDS: levoFLOXACIN 750MG TABLET PO SCH (09:19)
[2024-06-30] MEDS: LORazepam 2 mg/ml vial IV PRN (15:57)
[2024-06-30] MEDS: amLODIPine 5mg tablet PO SCH (20:25)
[2024-07-01] VITALS (12 sets, daily range): BP systolic 126–163; BP diastolic 64–96; PULSE 68–89; RESP 16–23; TEMP 97.5–98.3; O2SAT 95–98
[2024-07-01] MEDS: LidoCAINE 2% Topical Jelly 11mL syringe (UROJET) TOP ONE (05:38)
[2024-07-01 06:10] LABS: BILIRUBIN,URINE NEGATIVE (Neg); CLARITY,URINE CLEAR (Clear); COLOR,URINE YELLOW (Yellow); GLUCOSE, URINE NEGATIVE (Neg); KETONES,URINE NEGATIVE (Neg); LEUKOCYTE ESTERASE ,URINE NEGATIVE (Neg); OCCULT BLOOD,URINE TRACE-INTACT (Neg); PROTEIN,URINE 100 mg/dl (Neg); UROBILINOGEN,URINE 0.2 E.U/dL (0.2-1.0)
[2024-07-01 06:14] LABS: UA COLLECTION TYPE NON-SPECIFIED
[2024-07-01 06:16] LABS: NITRITES, URINE NEGATIVE (Neg)
[2024-07-01 06:17] LABS: BACTERIA,URINE NONE SEEN /HPF (Neg); SQUAMOUS EPITHELIAL CELL,UR NONE SEEN /LPF (FEW); WBC,URINE NONE SEEN /HPF (0-4)
[2024-07-01 06:57] LABS: BASOPHILS % (AUTO) 0.3 % (0-1); EOSINOPHILS % (AUTO) 0.1 % (0-6); HEMATOCRIT 36.8 % (42.0-52.0); HEMOGLOBIN 12.3 g/dl (14.0-17.9); LYMPHOCYTES # (AUTO) 1.3 X10'3 (1.1-4.8); LYMPHOCYTES % (AUTO) 15.9 % (21-51); MEAN CORPUSCULAR HEMOGLOBIN 31.8 PG (27.0-31.0); MEAN CORPUSCULAR HGB CONC 33.5 g/dL (33.0-36.5); MEAN CORPUSCULAR VOLUME 95.1 FL (78-98); MEAN PLATELET VOLUME 8.6 FL (7.4-10.4); MONOCYTES # (AUTO) 0.9 X10'3 (0-0.9); MONOCYTES % (AUTO) 10.9 % (2-12); NEUTROPHILS % (AUTO) 72.8 % (42-75); PLATELET COUNT 218 X10'3 (140-440); RED BLOOD COUNT 3.87 X10'6 (4.70-6.10); RED CELL DISTRIBUTION WIDTH 15.6 % (11.5-14.5); WHITE BLOOD COUNT 8.3 X10'3 (4.5-11.0)
[2024-07-01 07:10] LABS: INR 1.2 INR; PROTHROMBIN TIME 12.6 SECONDS (9.0-12.0)
[2024-07-01 07:19] LABS: ALANINE AMINOTRANSFERASE 75 U/L (12-78); ALBUMIN 2.4 G/DL (3.4-5.0); ALBUMIN/GLOBULIN RATIO 0.8 (1.1-1.5); ALKALINE PHOSPHATASE 87 IU/L (46-116); ANION GAP 10 (8-16); ASPARTATE AMINO TRANSFERASE 53 U/L (10-37); BILIRUBIN,TOTAL 0.6 MG/DL (0.1-1.0); BLOOD UREA NITROGEN 32 MG/DL (7-18); BUN/CREATININE RATIO 24.2 (10.0-20.0); CALCIUM 8.4 MG/DL (8.5-10.1); CHLORIDE 110 MMOL/L (99-107); CREATININE 1.32 MG/DL (0.60-1.10); GLUCOSE 138 MG/DL (70-104); MAGNESIUM 1.5 MG/DL (1.5-2.4); PHOSPHORUS 2.9 MG/DL (2.3-4.5); POTASSIUM 3.8 MMOL/L (3.5-5.1); SODIUM 141 MMOL/L (135-145); TOTAL CARBON DIOXIDE 20.8 MMOL/L (24-32); TOTAL PROTEIN 5.6 G/DL (6.4-8.2); eCRCL 49 ML/MIN; eGFR 53 ML/MIN
[2024-07-01 08:47] LABS: C-REACTIVE PROTEIN 0.84 MG/DL (0.0-0.5)
[2024-07-01] MEDS: magnesium hydroxide 30ml (MOM) UD suspension OGT PRN (09:29)
[2024-07-01] MEDS ORDERED: levoFLOXACIN 750MG TABLET PO SCH (14:19)
[2024-07-01] MEDS: polyvinyl alcohol eye drops 15ML BOTTLE EACHEYE PRN (15:35)
[2024-07-02 06:00] VITALS: BP 190/90; PULSE 65; RESP 22; TEMP 98.6; O2SAT 100
[2024-07-02 06:17] LABS: INR 1.2 INR; PROTHROMBIN TIME 12.4 SECONDS (9.0-12.0)
[2024-07-02 06:20] LABS: BASOPHILS % (AUTO) 0.2 % (0-1); EOSINOPHILS % (AUTO) 0.2 % (0-6); HEMATOCRIT 38.2 % (42.0-52.0); HEMOGLOBIN 12.7 g/dl (14.0-17.9); LYMPHOCYTES # (AUTO) 1.5 X10'3 (1.1-4.8); LYMPHOCYTES % (AUTO) 16.8 % (21-51); MEAN CORPUSCULAR HEMOGLOBIN 31.6 PG (27.0-31.0); MEAN CORPUSCULAR HGB CONC 33.3 g/dL (33.0-36.5); MEAN CORPUSCULAR VOLUME 95.1 FL (78-98); MEAN PLATELET VOLUME 9.7 FL (7.4-10.4); MONOCYTES % (AUTO) 10.5 % (2-12); NEUTROPHILS # (AUTO) 6.6 X10'3 (1.8-7.7); NEUTROPHILS % (AUTO) 72.3 % (42-75); PLATELET COUNT 216 X10'3 (140-440); RED BLOOD COUNT 4.02 X10'6 (4.70-6.10); RED CELL DISTRIBUTION WIDTH 15.1 % (11.5-14.5); WHITE BLOOD COUNT 9.1 X10'3 (4.5-11.0)
[2024-07-02 06:25] LABS: ALANINE AMINOTRANSFERASE 81 U/L (12-78); ALBUMIN 2.6 G/DL (3.4-5.0); ALBUMIN/GLOBULIN RATIO 0.8 (1.1-1.5); ALKALINE PHOSPHATASE 92 IU/L (46-116); ANION GAP 9 (8-16); ASPARTATE AMINO TRANSFERASE 52 U/L (10-37); BILIRUBIN,TOTAL 0.7 MG/DL (0.1-1.0); BLOOD UREA NITROGEN 33 MG/DL (7-18); CALCIUM 8.2 MG/DL (8.5-10.1); CHLORIDE 107 MMOL/L (99-107); CREATININE 1.32 MG/DL (0.60-1.10); GLUCOSE 130 MG/DL (70-104); MAGNESIUM 2.1 MG/DL (1.5-2.4); POTASSIUM 4.5 MMOL/L (3.5-5.1); PREALBUMIN 18.3 MG/DL (19-36); SODIUM 139 MMOL/L (135-145); TOTAL CARBON DIOXIDE 23.2 MMOL/L (24-32); TOTAL PROTEIN 5.8 G/DL (6.4-8.2); eCRCL 49 ML/MIN; eGFR 53 ML/MIN
[2024-07-02 06:32] VITALS: BP 170/77
[2024-07-02 09:37] VITALS: PULSE 71; PULSE 73; RESP 16; RESP 18; O2SAT 94
[2024-07-02 09:40] VITALS: RESP 16
[2024-07-02 10:00] VITALS: BP 157/85; PULSE 73; RESP 20; TEMP 98; O2SAT 94
[2024-07-02] MEDS: QUEtiapine 25mg tablet PO SCH (12:45)
[2024-07-02] MEDS: QUEtiapine 25mg tablet PO ONE (12:58)
[2024-07-02] MEDS ORDERED: albuterol 60 PUFF/8GM Inhaler (90mcg/1 puff) IH PRN (14:05)
[2024-07-02] MEDS: dexamethasone inj 6 MG in dextrose 5%-water 100 ML IV SCH (14:34)
[2024-07-02 22:00] VITALS: BP 167/88; PULSE 67; RESP 18; TEMP 97.5; O2SAT 97
[2024-07-03 05:39] LABS: BASOPHILS % (AUTO) 0.4 % (0-1); EOSINOPHILS # (AUTO) 0.1 X10'3 (0-0.9); HEMOGLOBIN 13.8 g/dl (14.0-17.9); LYMPHOCYTES # (AUTO) 2.4 X10'3 (1.1-4.8); LYMPHOCYTES % (AUTO) 28.3 % (21-51); MEAN CORPUSCULAR HEMOGLOBIN 31.4 PG (27.0-31.0); MEAN CORPUSCULAR HGB CONC 33.5 g/dL (33.0-36.5); MEAN CORPUSCULAR VOLUME 93.7 FL (78-98); MEAN PLATELET VOLUME 8.5 FL (7.4-10.4); MONOCYTES # (AUTO) 1.1 X10'3 (0-0.9); MONOCYTES % (AUTO) 13.3 % (2-12); NEUTROPHILS # (AUTO) 4.7 X10'3 (1.8-7.7); PLATELET COUNT 224 X10'3 (140-440); RED BLOOD COUNT 4.38 X10'6 (4.70-6.10); WHITE BLOOD COUNT 8.3 X10'3 (4.5-11.0)
[2024-07-03 05:49] LABS: INR 1.2 INR; PROTHROMBIN TIME 12.1 SECONDS (9.0-12.0)
[2024-07-03 05:57] LABS: ALANINE AMINOTRANSFERASE 83 U/L (12-78); ALBUMIN 2.7 G/DL (3.4-5.0); ALBUMIN/GLOBULIN RATIO 0.8 (1.1-1.5); ALKALINE PHOSPHATASE 92 IU/L (46-116); ANION GAP 7 (8-16); ASPARTATE AMINO TRANSFERASE 36 U/L (10-37); BILIRUBIN,TOTAL 0.8 MG/DL (0.1-1.0); BLOOD UREA NITROGEN 31 MG/DL (7-18); BUN/CREATININE RATIO 25.6 (10.0-20.0); CALCIUM 8.7 MG/DL (8.5-10.1); CHLORIDE 107 MMOL/L (99-107); CREATININE 1.21 MG/DL (0.60-1.10); GLUCOSE 112 MG/DL (70-104); MAGNESIUM 1.8 MG/DL (1.5-2.4); PHOSPHORUS 2.9 MG/DL (2.3-4.5); POTASSIUM 4.2 MMOL/L (3.5-5.1); SODIUM 141 MMOL/L (135-145); TOTAL CARBON DIOXIDE 26.6 MMOL/L (24-32); TOTAL PROTEIN 5.9 G/DL (6.4-8.2); eCRCL 54 ML/MIN; eGFR 58 ML/MIN
[2024-07-03 06:00] VITALS: BP 175/96; PULSE 68; RESP 22; TEMP 97.5; O2SAT 99
[2024-07-03 08:00] VITALS: RESP 22; O2SAT 99
[2024-07-03 10:00] VITALS: BP 134/79; PULSE 77; RESP 20; TEMP 98.1; O2SAT 95
[2024-07-03] MEDS: acetaminophen 325mg/10.15ml oral unit dose solution OGT PRN (16:25)
[2024-07-03 18:00] VITALS: BP 163/93; PULSE 68; RESP 18; TEMP 98.5; O2SAT 96
[2024-07-03 20:00] VITALS: RESP 18; O2SAT 96
[2024-07-03] MEDS: QUEtiapine 25mg tablet PO SCH (20:00)
[2024-07-03 22:00] VITALS: BP 144/81; PULSE 72; RESP 16; TEMP 97.5; O2SAT 96
[2024-07-04] VITALS (7 sets, daily range): BP systolic 128–167; BP diastolic 63–87; PULSE 67–86; RESP 14–20; TEMP 97.7–98.4; O2SAT 91–97
[2024-07-04 05:25] LABS: BASOPHILS % (AUTO) 0.5 % (0-1); EOSINOPHILS # (AUTO) 0.2 X10'3 (0-0.9); EOSINOPHILS % (AUTO) 2.4 % (0-6); HEMATOCRIT 40.5 % (42.0-52.0); HEMOGLOBIN 13.7 g/dl (14.0-17.9); LYMPHOCYTES # (AUTO) 3.6 X10'3 (1.1-4.8); LYMPHOCYTES % (AUTO) 37.8 % (21-51); MEAN CORPUSCULAR HEMOGLOBIN 31.8 PG (27.0-31.0); MEAN CORPUSCULAR HGB CONC 33.9 g/dL (33.0-36.5); MEAN CORPUSCULAR VOLUME 93.9 FL (78-98); MEAN PLATELET VOLUME 8.8 FL (7.4-10.4); MONOCYTES # (AUTO) 1.2 X10'3 (0-0.9); MONOCYTES % (AUTO) 12.7 % (2-12); NEUTROPHILS # (AUTO) 4.4 X10'3 (1.8-7.7); NEUTROPHILS % (AUTO) 46.6 % (42-75); PLATELET COUNT 229 X10'3 (140-440); RED BLOOD COUNT 4.31 X10'6 (4.70-6.10); RED CELL DISTRIBUTION WIDTH 15.1 % (11.5-14.5); WHITE BLOOD COUNT 9.5 X10'3 (4.5-11.0)
[2024-07-04 05:40] LABS: INR 1.1 INR; PROTHROMBIN TIME 11.5 SECONDS (9.0-12.0)
[2024-07-04 05:44] LABS: ALANINE AMINOTRANSFERASE 79 U/L (12-78); ALBUMIN 2.5 G/DL (3.4-5.0); ALBUMIN/GLOBULIN RATIO 0.8 (1.1-1.5); ALKALINE PHOSPHATASE 96 IU/L (46-116); ANION GAP 7 (8-16); ASPARTATE AMINO TRANSFERASE 37 U/L (10-37); BILIRUBIN,TOTAL 0.7 MG/DL (0.1-1.0); BLOOD UREA NITROGEN 39 MG/DL (7-18); BUN/CREATININE RATIO 29.3 (10.0-20.0); CALCIUM 8.2 MG/DL (8.5-10.1); CHLORIDE 106 MMOL/L (99-107); CREATININE 1.33 MG/DL (0.60-1.10); GLUCOSE 112 MG/DL (70-104); MAGNESIUM 1.7 MG/DL (1.5-2.4); PHOSPHORUS 2.8 MG/DL (2.3-4.5); POTASSIUM 4.1 MMOL/L (3.5-5.1); SODIUM 140 MMOL/L (135-145); TOTAL CARBON DIOXIDE 26.7 MMOL/L (24-32); TOTAL PROTEIN 5.7 G/DL (6.4-8.2); eCRCL 49 ML/MIN; eGFR 52 ML/MIN
[2024-07-04] MEDS: QUEtiapine 25mg tablet PO SCH (07:56)
[2024-07-04] MEDS ORDERED: dexamethasone sod phosphate 4mg/ml inj. PO ONE (14:40)
[2024-07-05] VITALS (7 sets, daily range): BP systolic 122–150; BP diastolic 52–77; PULSE 67–84; RESP 18–22; TEMP 98–98.6; O2SAT 94–97
[2024-07-05 05:29] LABS: BASOPHILS # (AUTO) 0.1 X10'3 (0-0.2); BASOPHILS % (AUTO) 0.6 % (0-1); EOSINOPHILS # (AUTO) 0.2 X10'3 (0-0.9); EOSINOPHILS % (AUTO) 1.7 % (0-6); HEMATOCRIT 38.9 % (42.0-52.0); HEMOGLOBIN 12.9 g/dl (14.0-17.9); LYMPHOCYTES # (AUTO) 3.6 X10'3 (1.1-4.8); LYMPHOCYTES % (AUTO) 27.3 % (21-51); MEAN CORPUSCULAR HEMOGLOBIN 31.5 PG (27.0-31.0); MEAN CORPUSCULAR HGB CONC 33.1 g/dL (33.0-36.5); MEAN CORPUSCULAR VOLUME 95.4 FL (78-98); MEAN PLATELET VOLUME 9.7 FL (7.4-10.4); MONOCYTES # (AUTO) 1.3 X10'3 (0-0.9); MONOCYTES % (AUTO) 9.5 % (2-12); NEUTROPHILS % (AUTO) 60.9 % (42-75); PLATELET COUNT 221 X10'3 (140-440); RED BLOOD COUNT 4.08 X10'6 (4.70-6.10); RED CELL DISTRIBUTION WIDTH 15.2 % (11.5-14.5); WHITE BLOOD COUNT 13.2 X10'3 (4.5-11.0)
[2024-07-05 05:32] LABS: INR 1.1 INR; PROTHROMBIN TIME 11.4 SECONDS (9.0-12.0)
[2024-07-05 05:37] LABS: ALANINE AMINOTRANSFERASE 68 U/L (12-78); ALBUMIN 2.2 G/DL (3.4-5.0); ALBUMIN/GLOBULIN RATIO 0.7 (1.1-1.5); ALKALINE PHOSPHATASE 100 IU/L (46-116); ANION GAP 7 (8-16); ASPARTATE AMINO TRANSFERASE 29 U/L (10-37); BILIRUBIN,TOTAL 0.6 MG/DL (0.1-1.0); BLOOD UREA NITROGEN 42 MG/DL (7-18); BUN/CREATININE RATIO 30.4 (10.0-20.0); CALCIUM 7.7 MG/DL (8.5-10.1); CHLORIDE 106 MMOL/L (99-107); CREATININE 1.38 MG/DL (0.60-1.10); GLUCOSE 126 MG/DL (70-104); MAGNESIUM 1.8 MG/DL (1.5-2.4); PHOSPHORUS 2.6 MG/DL (2.3-4.5); POTASSIUM 3.7 MMOL/L (3.5-5.1); PREALBUMIN 19.6 MG/DL (19-36); SODIUM 140 MMOL/L (135-145); TOTAL CARBON DIOXIDE 26.6 MMOL/L (24-32); TOTAL PROTEIN 5.4 G/DL (6.4-8.2); eCRCL 47 ML/MIN; eGFR 50 ML/MIN
[2024-07-05] MEDS: dexamethasone sod phosphate 4mg/ml inj. PO SCH (07:13)
[2024-07-05] MEDS: lactose-reduced food (Ensure Enlive) - 237ml bottle PO SCH (17:30)
[2024-07-05] MEDS: baclofen 10mg tablet PO PRN (20:24)
[2024-07-06 04:50] LABS: BASOPHILS # (AUTO) 0.1 X10'3 (0-0.2); BASOPHILS % (AUTO) 0.5 % (0-1); EOSINOPHILS # (AUTO) 0.1 X10'3 (0-0.9); EOSINOPHILS % (AUTO) 0.9 % (0-6); HEMATOCRIT 37.6 % (42.0-52.0); HEMOGLOBIN 12.2 g/dl (14.0-17.9); LYMPHOCYTES # (AUTO) 3.9 X10'3 (1.1-4.8); LYMPHOCYTES % (AUTO) 26.2 % (21-51); MEAN CORPUSCULAR HGB CONC 32.4 g/dL (33.0-36.5); MEAN CORPUSCULAR VOLUME 95.9 FL (78-98); MEAN PLATELET VOLUME 9.2 FL (7.4-10.4); MONOCYTES # (AUTO) 1.3 X10'3 (0-0.9); MONOCYTES % (AUTO) 8.7 % (2-12); NEUTROPHILS # (AUTO) 9.4 X10'3 (1.8-7.7); NEUTROPHILS % (AUTO) 63.7 % (42-75); PLATELET COUNT 211 X10'3 (140-440); RED BLOOD COUNT 3.92 X10'6 (4.70-6.10); RED CELL DISTRIBUTION WIDTH 15.5 % (11.5-14.5); WHITE BLOOD COUNT 14.8 X10'3 (4.5-11.0)
[2024-07-06 05:00] LABS: INR 1.1 INR; PROTHROMBIN TIME 11.2 SECONDS (9.0-12.0)
[2024-07-06 05:03] LABS: ALANINE AMINOTRANSFERASE 67 U/L (12-78); ALBUMIN 2.3 G/DL (3.4-5.0); ALBUMIN/GLOBULIN RATIO 0.8 (1.1-1.5); ALKALINE PHOSPHATASE 97 IU/L (46-116); ANION GAP 7 (8-16); ASPARTATE AMINO TRANSFERASE 26 U/L (10-37); BILIRUBIN,TOTAL 0.6 MG/DL (0.1-1.0); BLOOD UREA NITROGEN 44 MG/DL (7-18); CALCIUM 7.7 MG/DL (8.5-10.1); CHLORIDE 108 MMOL/L (99-107); CREATININE 1.57 MG/DL (0.60-1.10); GLUCOSE 111 MG/DL (70-104); MAGNESIUM 1.6 MG/DL (1.5-2.4); PHOSPHORUS 2.7 MG/DL (2.3-4.5); SODIUM 141 MMOL/L (135-145); TOTAL CARBON DIOXIDE 25.9 MMOL/L (24-32); TOTAL PROTEIN 5.3 G/DL (6.4-8.2); eCRCL 41 ML/MIN; eGFR 43 ML/MIN
[2024-07-06 06:00] VITALS: BP 153/82; PULSE 68; RESP 20; TEMP 98.7; O2SAT 95
[2024-07-06 08:00] VITALS: RESP 19; O2SAT 95
[2024-07-06 10:47] VITALS: BP 149/64; PULSE 80; RESP 16; TEMP 98; O2SAT 95
[2024-07-06 11:14] VITALS: PULSE 87; RESP 16; O2SAT 94
[2024-07-06] MEDS ORDERED: dexamethasone 4mg tablet PO SCH (11:45)
[2024-07-06] MEDS: DEXAMETHASONE 6 MG TABLET PO ONE (16:25)
[2024-07-06 18:00] VITALS: BP 113/65; PULSE 62; RESP 20; TEMP 98; O2SAT 94
[2024-07-06 20:00] VITALS: RESP 20; O2SAT 94
[2024-07-06] MEDS: docusate sod 100mg capsule PO SCH (21:06)
[2024-07-07] VITALS (7 sets, daily range): BP systolic 101–169; BP diastolic 50–83; PULSE 62–72; RESP 14–20; TEMP 97.5–97.6; O2SAT 95–98
[2024-07-07 05:45] LABS: BASOPHILS % (AUTO) 0.3 % (0-1); EOSINOPHILS % (AUTO) 0.1 % (0-6); HEMATOCRIT 39.3 % (42.0-52.0); LYMPHOCYTES # (AUTO) 1.7 X10'3 (1.1-4.8); LYMPHOCYTES % (AUTO) 13.6 % (21-51); MEAN CORPUSCULAR HEMOGLOBIN 31.4 PG (27.0-31.0); MEAN CORPUSCULAR VOLUME 95.3 FL (78-98); MEAN PLATELET VOLUME 9.2 FL (7.4-10.4); MONOCYTES # (AUTO) 0.5 X10'3 (0-0.9); MONOCYTES % (AUTO) 3.9 % (2-12); NEUTROPHILS % (AUTO) 82.1 % (42-75); PLATELET COUNT 196 X10'3 (140-440); RED BLOOD COUNT 4.12 X10'6 (4.70-6.10); RED CELL DISTRIBUTION WIDTH 15.4 % (11.5-14.5); WHITE BLOOD COUNT 12.2 X10'3 (4.5-11.0)
[2024-07-07 05:55] LABS: PROTHROMBIN TIME 10.9 SECONDS (9.0-12.0)
[2024-07-07 06:01] LABS: ALANINE AMINOTRANSFERASE 70 U/L (12-78); ALBUMIN 2.5 G/DL (3.4-5.0); ALBUMIN/GLOBULIN RATIO 0.7 (1.1-1.5); ALKALINE PHOSPHATASE 111 IU/L (46-116); ANION GAP 7 (8-16); ASPARTATE AMINO TRANSFERASE 33 U/L (10-37); BILIRUBIN,TOTAL 0.5 MG/DL (0.1-1.0); BLOOD UREA NITROGEN 36 MG/DL (7-18); BUN/CREATININE RATIO 25.9 (10.0-20.0); CALCIUM 8.4 MG/DL (8.5-10.1); CHLORIDE 106 MMOL/L (99-107); CREATININE 1.39 MG/DL (0.60-1.10); GLUCOSE 178 MG/DL (70-104); MAGNESIUM 2.2 MG/DL (1.5-2.4); PHOSPHORUS 3.2 MG/DL (2.3-4.5); POTASSIUM 4.3 MMOL/L (3.5-5.1); SODIUM 139 MMOL/L (135-145); TOTAL CARBON DIOXIDE 26.3 MMOL/L (24-32); eCRCL 47 ML/MIN; eGFR 50 ML/MIN
[2024-07-07] MEDS: DEXAMETHASONE 6 MG TABLET PO SCH (07:29)
[2024-07-07] MEDS: HYDROcodone/acetaminophen 10/325mg tab PO PRN (11:12)
[2024-07-07] MEDS ORDERED: nystatin 15 GM powder TP SCH (21:00)
== END 2024-07-07 17:51 | disposition left against medical advice (07) | DRG 871 ==
LOC: ER 13:46 → CICU 2S 15:33 → SUR 3N 06-27 14:40
PROVIDERS: ADMIT Internal Medicine Critical Care Medicine; ATTEND Internal Medicine Critical Care Medicine
PROC: 5A1945Z Respiratory Ventilation, 24-96 Consecutive Hours (ICD-10-PCS; principal; 2024-06-25)
PROC: 0BH17EZ Insertion of Endotracheal Airway into Trachea, Via Natural or Artificial Opening (ICD-10-PCS; 2024-06-25)
PROC: B3251ZZ Computerized Tomography (CT Scan) of Bilateral Common Carotid Arteries using Low Osmolar Contrast (ICD-10-PCS; 2024-06-25)
PROC: B32G1ZZ Computerized Tomography (CT Scan) of Bilateral Vertebral Arteries using Low Osmolar Contrast (ICD-10-PCS; 2024-06-25)
PROC: B32R1ZZ Computerized Tomography (CT Scan) of Intracranial Arteries using Low Osmolar Contrast (ICD-10-PCS; 2024-06-25)
PROC: B3281ZZ Computerized Tomography (CT Scan) of Bilateral Internal Carotid Arteries using Low Osmolar Contrast (ICD-10-PCS; 2024-06-25)
PROC: XW033E5 Introduction of Remdesivir Anti-infective into Peripheral Vein, Percutaneous Approach, New Technology Group 5 (ICD-10-PCS; 2024-06-26)
DX: A41.9 Sepsis, unspecified organism (principal); G93.41 Metabolic encephalopathy; J69.0 Pneumonitis due to inhalation of food and vomit; U07.1 COVID-19; J96.01 Acute respiratory failure with hypoxia; J12.82 Pneumonia due to coronavirus disease 2019; N17.0 Acute kidney failure with tubular necrosis; E87.20 Acidosis, unspecified; T38.0X5A Adverse effect of glucocorticoids and synthetic analogues, initial encounter; I10 Essential (primary) hypertension; N40.0 Benign prostatic hyperplasia without lower urinary tract symptoms; I27.20 Pulmonary hypertension, unspecified; G89.4 Chronic pain syndrome; Z53.21 Procedure and treatment not carried out due to patient leaving prior to being seen by health care provider; G47.33 Obstructive sleep apnea (adult) (pediatric); R73.9 Hyperglycemia, unspecified; F11.10 Opioid abuse, uncomplicated; Z87.891 Personal history of nicotine dependence; Z90.49 Acquired absence of other specified parts of digestive tract; Z79.899 Other long term (current) drug therapy; Y92.89 Other specified places as the place of occurrence of the external cause
CPT/HCPCS: 36415; 36600; 70450; 70496; 70498; 71045; 71250; 80048; 80053; 80305; 81001; 82140; 82570; 82803; 82948; 83036; 83605; 83735; 83880; 83930; 83935; 84100; 84134; 84145; 84156; 84300; 84443; 84484; 85018; 85025; 85610; 85651; 86140; 87040; 87070; 87077; 87081; 87186; 87207; 87502; 87503; 87811; 92508; 92616; 93005; 94002; 94003; 94640; 94760; 97110; 97116; 97161; 97530; 99291; A4314; A4346; A4615; A6250; A6449; A6590; C1751; C1758; G0378; J0360; J0456; J0696; J1100; J1650; J1815; J2060; J2270; J2470; J2543; J2704; J2919; J3010; J3370; J3490; J7030; J7040; J7050; J7060; J7120; J8540; Q9967

== ENCOUNTER 2024-09-08 21:41 | Inpatient (IN) | payer OTHER, MEDICARE ==
[~2024-09-08] VITALS: Ht 177.8 cm; Wt 120.8 kg
[~2024-09-08 21:41] MED LIST changes: -CAPS57CR5 TP; -CEFD300C3 PO; -CETI10TA19 PO; +COLC0.6T72 PO; -FLUT16SP8 BOTHNARES; -FURO40TA4 PO; -KETO-96 EACHEYE; -LIDO700A32 TOP; -MORP-92 PO; -SACC250C PO; +UNABLE TO OBTAIN
[2024-09-08 23:12] LABS: BASOPHILS % (AUTO) 0.3 % (0-1); EOSINOPHILS # (AUTO) 0.2 X10'3 (0-0.9); EOSINOPHILS % (AUTO) 1.4 % (0-6); HEMATOCRIT 38.3 % (42.0-52.0); HEMOGLOBIN 12.5 g/dl (14.0-17.9); LYMPHOCYTES # (AUTO) 1.4 X10'3 (1.1-4.8); LYMPHOCYTES % (AUTO) 12.3 % (21-51); MEAN CORPUSCULAR HGB CONC 32.7 g/dL (33.0-36.5); MEAN PLATELET VOLUME 8.8 FL (7.4-10.4); NEUTROPHILS # (AUTO) 8.7 X10'3 (1.8-7.7); PLATELET COUNT 262 X10'3 (140-440); RED BLOOD COUNT 4.03 X10'6 (4.70-6.10); RED CELL DISTRIBUTION WIDTH 15.2 % (11.5-14.5); WHITE BLOOD COUNT 11.3 X10'3 (4.5-11.0)
[2024-09-08 23:22] LABS: INR 1.1 INR; PROTHROMBIN TIME 11.3 SECONDS (9.0-12.0)
[2024-09-08 23:23] LABS: APTT 27 SECONDS (22-32)
[2024-09-08 23:29] LABS: ALANINE AMINOTRANSFERASE 37 U/L (12-78); ALBUMIN 3.2 G/DL (3.4-5.0); ALBUMIN/GLOBULIN RATIO 0.8 (1.1-1.5); ALKALINE PHOSPHATASE 113 IU/L (46-116); ANION GAP 11 (8-16); ASPARTATE AMINO TRANSFERASE 29 U/L (10-37); BILIRUBIN,TOTAL 0.3 MG/DL (0.1-1.0); BLOOD UREA NITROGEN 43 MG/DL (7-18); BUN/CREATININE RATIO 16.7 (10.0-20.0); CALCIUM 8.8 MG/DL (8.5-10.1); CHLORIDE 103 MMOL/L (99-107); CREATININE 2.57 MG/DL (0.60-1.10); GLUCOSE 123 MG/DL (70-104); POTASSIUM 3.9 MMOL/L (3.5-5.1); SODIUM 139 MMOL/L (135-145); TOTAL CARBON DIOXIDE 25.3 MMOL/L (24-32); TOTAL PROTEIN 7.4 G/DL (6.4-8.2); eCRCL 25 ML/MIN; eGFR 24 ML/MIN
[2024-09-08] MEDS: LidoCAINE 2% Topical Jelly 11mL syringe (UROJET) TOP ONE (23:42)
[2024-09-08 23:43] LABS: PRO BRAIN NATRIURETIC PEPTIDE 177 PG/ML (0-450)
[2024-09-08 23:49] LABS: BILIRUBIN,URINE NEGATIVE (Neg); CLARITY,URINE CLEAR (Clear); COLOR,URINE YELLOW (Yellow); GLUCOSE, URINE NEGATIVE (Neg); KETONES,URINE NEGATIVE (Neg); LEUKOCYTE ESTERASE ,URINE NEGATIVE (Neg); NITRITES, URINE NEGATIVE (Neg); OCCULT BLOOD,URINE NEGATIVE (Neg); PROTEIN,URINE >=300 mg/dl (Neg); UROBILINOGEN,URINE 0.2 E.U/dL (0.2-1.0)
[2024-09-08 23:55] LABS: UA COLLECTION TYPE NON-SPECIFIED
[2024-09-08 23:56] LABS: BACTERIA,URINE NONE SEEN /HPF (Neg); MUCUS STRANDS FEW /LPF (Neg); RBC,URINE NONE SEEN /HPF (0-2); SQUAMOUS EPITHELIAL CELL,UR FEW /LPF (FEW); WBC,URINE 0-4 /HPF (0-4)
[2024-09-09] MEDS ORDERED: magnesium sulf-water 4G/100mL 100 ML IV PRN (04:25)
[2024-09-09] MEDS ORDERED: potassium Cl 40MEQ/1/2NS 520ml 520 ML IV PRN (04:25)
[2024-09-09] MEDS ORDERED: magnesium sulf-water 2g/50mL 50 ML IV PRN (04:25)
[2024-09-09] MEDS ORDERED: ondansetron/PF 4mg/2ml inj IV PRN (04:25)
[2024-09-09] MEDS ORDERED: mag hydrox/Alum hydrox/simeth 30ml oral suspension PO PRN (04:25)
[2024-09-09] MEDS: normal saline 1000ml 1,000 ML IV SCH (04:25)
[2024-09-09] MEDS ORDERED: magnesium hydroxide 30ml (MOM) UD suspension PO PRN (04:25)
[2024-09-09] MEDS ORDERED: potassium Cl 20 mEq SR tablet PO PRN ×2 (04:25)
[2024-09-09] MEDS ORDERED: acetaminophen 325mg tablet PO PRN (04:25)
[2024-09-09] MEDS ORDERED: magnesium Cl slow-release 64mg tablet PO PRN (04:25)
[2024-09-09] MEDS ORDERED: MORP-92 PO (06:14)
[2024-09-09] MEDS ORDERED: CETI10TA15 PO (06:19)
[2024-09-09 07:16] LABS: MAGNESIUM 1.9 MG/DL (1.5-2.4); POTASSIUM 4.3 MMOL/L (3.5-5.1)
[2024-09-09 08:11] LABS: URINE AMPHETAMINE SCREEN NEGATIVE (Neg); URINE BARBITUATE SCREEN NEGATIVE (Neg); URINE BENZODIAZEPINES SCREEN NEGATIVE (Neg); URINE METHADONE SCREEN NEGATIVE (Neg)
[2024-09-09 08:12] LABS: URINE CANNABINOID SCREEN NEGATIVE (Neg); URINE COCAINE SCREEN NEGATIVE (Neg); URINE OPIATE SCREEN POSITIVE (Neg); URINE PHENCYCLIDINE SCREEN NEGATIVE (Neg)
[2024-09-09] MEDS: heparin, porcine 5000 units/ml vial SQ SCH (08:41)
[2024-09-09] MEDS: K and/or MAG REPLACEMENT MC SCH (08:41)
[2024-09-09] MEDS: CefTRIAXone/D5W-Rocephin 1gm 50 ML IV SCH (08:41)
[2024-09-09] MEDS: docusate sod 100mg capsule PO SCH (08:42)
[2024-09-09] MEDS ORDERED: baclofen 10mg tablet PO PRN (11:55)
[2024-09-09 12:51] LABS: BASOPHILS # (AUTO) 0.1 X10'3 (0-0.2); BASOPHILS % (AUTO) 0.6 % (0-1); EOSINOPHILS # (AUTO) 0.3 X10'3 (0-0.9); EOSINOPHILS % (AUTO) 3.1 % (0-6); HEMATOCRIT 36.6 % (42.0-52.0); HEMOGLOBIN 12.1 g/dl (14.0-17.9); LYMPHOCYTES # (AUTO) 1.9 X10'3 (1.1-4.8); LYMPHOCYTES % (AUTO) 20.7 % (21-51); MEAN CORPUSCULAR HEMOGLOBIN 31.5 PG (27.0-31.0); MEAN CORPUSCULAR HGB CONC 33.1 g/dL (33.0-36.5); MEAN CORPUSCULAR VOLUME 95.1 FL (78-98); MEAN PLATELET VOLUME 9.3 FL (7.4-10.4); MONOCYTES # (AUTO) 1.1 X10'3 (0-0.9); MONOCYTES % (AUTO) 12.5 % (2-12); NEUTROPHILS # (AUTO) 5.6 X10'3 (1.8-7.7); NEUTROPHILS % (AUTO) 63.1 % (42-75); PLATELET COUNT 257 X10'3 (140-440); RED BLOOD COUNT 3.85 X10'6 (4.70-6.10); RED CELL DISTRIBUTION WIDTH 15.2 % (11.5-14.5); WHITE BLOOD COUNT 8.9 X10'3 (4.5-11.0)
[2024-09-09 15:33] VITALS: BP 155/75; PULSE 75; RESP 19; TEMP 98.8; O2SAT 99
[2024-09-09] MEDS: HYDROcodone/acetaminophen 5mg/325mg tablet PO PRN (16:13)
[2024-09-09 17:49] VITALS: RESP 17
[2024-09-10] MEDS ORDERED: losartan 50mg tablet PO SCH (08:00)
[2024-09-10] MEDS ORDERED: tamsulosin 0.4mg capsule PO SCH (08:00)
[2024-09-10] MEDS ORDERED: pantoprazole 40mg Tablet.DR PO SCH (08:00)
[2024-09-10] MEDS ORDERED: allopurinol 300 MG tablet PO SCH (08:00)
[2024-09-10] MEDS ORDERED: cholecalciferol (vitamin D3) 1,000 unit (25mcg) tablet PO SCH (08:00)
[2024-09-10] MEDS ORDERED: metoprolol succinate 25mg (24-HOUR) SR. Tablet PO SCH (08:00)
[2024-09-10] MEDS ORDERED: atorvastatin 20mg tablet PO SCH (08:00)
== END 2024-09-09 20:49 | disposition left against medical advice (07) | DRG 682 ==
LOC: ER 21:42 → ED HOLD 09-09 01:48 → UNDOADMIN 09-09 01:48 → ED HOLD 09-09 12:49 → EDBEDREQSVC 09-09 14:39 → ED HOLD 09-09 15:26 → ORTHO 4S 09-09 15:26 → UNDODISIN 09-09 20:49
PROVIDERS: ADMIT Internal Medicine Critical Care Medicine; ATTEND Internal Medicine
DX: N17.9 Acute kidney failure, unspecified (principal); G93.41 Metabolic encephalopathy; J96.01 Acute respiratory failure with hypoxia; F03.C4 Unspecified dementia, severe, with anxiety; R33.9 Retention of urine, unspecified; Z53.29 Procedure and treatment not carried out because of patient's decision for other reasons; K59.00 Constipation, unspecified; G89.4 Chronic pain syndrome; R41.0 Disorientation, unspecified; G47.30 Sleep apnea, unspecified; I11.9 Hypertensive heart disease without heart failure; Z79.899 Other long term (current) drug therapy; Z90.49 Acquired absence of other specified parts of digestive tract
CPT/HCPCS: 36415; 70450; 71045; 71250; 74176; 76770; 80053; 80305; 81001; 82140; 83036; 83605; 83735; 83880; 84132; 84145; 84484; 85025; 85610; 85730; 87040; 87081; 87502; 87503; 93306; 99285; A4314; G0378; J0696; J1644; J7030

== ENCOUNTER 2024-10-02 12:57 | Inpatient (IN) | payer OTHER, MEDICARE ==
[~2024-10-02] VITALS: Ht 170.2 cm; Wt 106.3 kg
[~2024-10-02 12:57] MED LIST changes: -FLO0.4C PO; -LOSA-415 PO; -SENN-360 PO; +TAMS-55 PO
[2024-10-02] MEDS: fentaNYL/PF 50MCG/1 ML 2ML syringe IV ONE (13:13)
[2024-10-02 13:23] LABS: BASOPHILS # (AUTO) 0.1 X10'3 (0-0.2); BASOPHILS % (AUTO) 1.2 % (0-1); EOSINOPHILS # (AUTO) 0.3 X10'3 (0-0.9); EOSINOPHILS % (AUTO) 7.2 % (0-6); HEMATOCRIT 32.1 % (42.0-52.0); HEMOGLOBIN 10.7 g/dl (14.0-17.9); LYMPHOCYTES # (AUTO) 1.8 X10'3 (1.1-4.8); LYMPHOCYTES % (AUTO) 37.2 % (21-51); MEAN CORPUSCULAR HEMOGLOBIN 31.2 PG (27.0-31.0); MEAN CORPUSCULAR HGB CONC 33.4 g/dL (33.0-36.5); MEAN CORPUSCULAR VOLUME 93.5 FL (78-98); MEAN PLATELET VOLUME 9.1 FL (7.4-10.4); MONOCYTES # (AUTO) 0.5 X10'3 (0-0.9); NEUTROPHILS # (AUTO) 2.1 X10'3 (1.8-7.7); NEUTROPHILS % (AUTO) 44.4 % (42-75); PLATELET COUNT 163 X10'3 (140-440); RED BLOOD COUNT 3.43 X10'6 (4.70-6.10); RED CELL DISTRIBUTION WIDTH 15.6 % (11.5-14.5); WHITE BLOOD COUNT 4.7 X10'3 (4.5-11.0)
[2024-10-02 13:31] LABS: BILIRUBIN,URINE NEGATIVE (Neg); CLARITY,URINE CLEAR (Clear); COLOR,URINE YELLOW (Yellow); GLUCOSE, URINE NEGATIVE (Neg); KETONES,URINE NEGATIVE (Neg); LEUKOCYTE ESTERASE ,URINE NEGATIVE (Neg); NITRITES, URINE NEGATIVE (Neg); OCCULT BLOOD,URINE NEGATIVE (Neg); PROTEIN,URINE 100 mg/dl (Neg); UROBILINOGEN,URINE 0.2 E.U/dL (0.2-1.0)
[2024-10-02 13:33] LABS: UA COLLECTION TYPE STRAIGHT CATH
[2024-10-02 13:37] LABS: ALBUMIN 3.1 G/DL (3.4-5.0); ANION GAP 9 (8-16); BLOOD UREA NITROGEN 31 MG/DL (7-18); BUN/CREATININE RATIO 22.3 (10.0-20.0); CALCIUM 8.7 MG/DL (8.5-10.1); CHLORIDE 111 MMOL/L (99-107); CREATININE 1.39 MG/DL (0.60-1.10); GLUCOSE 125 MG/DL (70-104); POTASSIUM 3.8 MMOL/L (3.5-5.1); SODIUM 144 MMOL/L (135-145); TOTAL CARBON DIOXIDE 24.5 MMOL/L (24-32); eCRCL 42 ML/MIN; eGFR 50 ML/MIN
[2024-10-02] MEDS: haloperidol lactate 5mg/ml inj IM ONE (13:37)
[2024-10-02 13:38] LABS: BACTERIA,URINE NONE SEEN /HPF (Neg); RBC,URINE 0-2 /HPF (0-2); WBC,URINE 0-4 /HPF (0-4)
[2024-10-02 13:40] LABS: APTT 24 SECONDS (22-32); INR 1.1 INR; PROTHROMBIN TIME 11.2 SECONDS (9.0-12.0)
[2024-10-02 13:40] LABS: MUCUS STRANDS NONE SEEN /LPF (Neg); SQUAMOUS EPITHELIAL CELL,UR NONE SEEN /LPF (FEW)
[2024-10-02] MEDS ORDERED: magnesium sulf-water 2g/50mL 50 ML IV PRN (14:35)
[2024-10-02] MEDS ORDERED: magnesium sulf-water 4G/100mL 100 ML IV PRN (14:35)
[2024-10-02] MEDS ORDERED: potassium Cl 20 mEq SR tablet PO PRN ×2 (14:35)
[2024-10-02] MEDS ORDERED: mag hydrox/Alum hydrox/simeth 30ml oral suspension PO PRN (14:35)
[2024-10-02] MEDS ORDERED: acetaminophen 325mg tablet PO PRN (14:35)
[2024-10-02] MEDS ORDERED: haloperidol 1mg tablet PO PRN (14:35)
[2024-10-02] MEDS ORDERED: potassium Cl 40MEQ/1/2NS 520ml 520 ML IV PRN (14:35)
[2024-10-02] MEDS ORDERED: magnesium hydroxide 30ml (MOM) UD suspension PO PRN (14:35)
[2024-10-02 15:21] LABS: LIPASE 87 U/L (16-77); PRO BRAIN NATRIURETIC PEPTIDE 429 PG/ML (0-450)
[2024-10-02 15:40] LABS: URINE AMPHETAMINE SCREEN NEGATIVE (Neg); URINE BARBITUATE SCREEN NEGATIVE (Neg); URINE BENZODIAZEPINES SCREEN NEGATIVE (Neg); URINE CANNABINOID SCREEN NEGATIVE (Neg); URINE COCAINE SCREEN NEGATIVE (Neg); URINE METHADONE SCREEN NEGATIVE (Neg); URINE OPIATE SCREEN POSITIVE (Neg); URINE PHENCYCLIDINE SCREEN NEGATIVE (Neg)
[2024-10-02] MEDS ORDERED: naloxone 0.4 mg/ml inj IV PRN (16:15)
[2024-10-02 16:51] LABS: ABG BASE EXCESS -3.4 mmol/L (-2.0-3.0); ABG HCO3 19.8 mmol/L (21.0-28.0); ABG OXYGEN SATURATION 97.5 % (94.0-98.0); ABG PCO2 (T) 29.9 mmHg (35.0-48.0); ABG PO2 (T) 103.9 mmHg (83.0-108.0); ALLEN'S TEST POSITIVE; FCOHb 0.3 % (0.5-1.5); FHHb 2.5 % (0.0-5.0); FMetHb 0.3 % (0.0-1.5); FO2Hb 96.9 % (94.0-98.0); MODE NASAL CANNULA; PATIENT TEMPERATURE 37.2; TOTAL HEMOGLOBIN 11.3 G/dl (13.5-17.5)
[2024-10-02] MEDS: ringers solution, lacted 1,000 ML IV SCH (17:24)
[2024-10-02] MEDS: hydrALAZINE 20mg/ml inj. IV SCH ×2 (17:26→20:00)
[2024-10-02 17:50] VITALS: PULSE 55; RESP 16; O2SAT 98
[2024-10-02] MEDS: haloperidol lactate 5mg/ml inj IM PRN (18:55)
[2024-10-02] MEDS ORDERED: morphine 2 MG/ML inj. syringe IV PRN (19:25)
[2024-10-02] MEDS ORDERED: ondansetron/PF 4mg/2ml inj IV PRN (19:25)
[2024-10-02] MEDS: morphine 2 MG/ML inj. syringe IV PRN (19:32)
[2024-10-02] MEDS: ondansetron/PF 4mg/2ml inj IV PRN (19:32)
[2024-10-02] MEDS ORDERED: morphine 4 MG/ML inj SYRINge IV PRN (19:35)
[2024-10-02] MEDS: K and/or MAG REPLACEMENT MC SCH (20:00)
[2024-10-02] MEDS: hydrALAZINE 20mg/ml inj. IV ONE (20:00)
[2024-10-02] MEDS ORDERED: heparin, porcine 5000 units/ml vial SQ SCH (20:00)
[2024-10-02] MEDS: docusate sod 100mg capsule PO SCH (20:00)
[2024-10-02] MEDS: heparin, porcine 5000 units/ml vial SQ SCH (20:00)
[2024-10-02] MEDS: OLANZapine **IM** 10 mg inj. IM ONE (20:03)
[2024-10-02 20:07] LABS: CREATINE KINASE 102 U/L (39-308)
[2024-10-02 20:18] LABS: ALANINE AMINOTRANSFERASE 33 U/L (12-78); ALBUMIN 3.2 G/DL (3.4-5.0); ALKALINE PHOSPHATASE 142 IU/L (46-116); ASPARTATE AMINO TRANSFERASE 35 U/L (10-37); BILIRUBIN,DIRECT 0.2 MG/DL (0-0.3); BILIRUBIN,TOTAL 0.4 MG/DL (0.1-1.0); TOTAL PROTEIN 6.5 G/DL (6.4-8.2)
[2024-10-02] MEDS: HYDROmorphone inj. 0.5 MG/0.5 ML DISP.SYRIN IV ONE (20:57)
[2024-10-02 21:30] VITALS: BP 203/102; PULSE 76; RESP 20; TEMP 98.2; O2SAT 96
[2024-10-02 21:34] VITALS: PULSE 67; RESP 16; O2SAT 96
[2024-10-03] VITALS (7 sets, daily range): BP systolic 102–198; BP diastolic 45–87; PULSE 61–85; RESP 14–18; TEMP 97.2–98.4; O2SAT 91–98
[2024-10-03] MEDS: baclofen 10mg tablet PO PRN (00:48)
[2024-10-03] MEDS: haloperidol lactate 5mg/ml inj IM ONE (01:27)
[2024-10-03 06:02] LABS: BASOPHILS % (AUTO) 0.6 % (0-1); EOSINOPHILS # (AUTO) 0.1 X10'3 (0-0.9); EOSINOPHILS % (AUTO) 2.1 % (0-6); HEMATOCRIT 31.4 % (42.0-52.0); HEMOGLOBIN 10.4 g/dl (14.0-17.9); LYMPHOCYTES # (AUTO) 1.9 X10'3 (1.1-4.8); LYMPHOCYTES % (AUTO) 27.8 % (21-51); MEAN CORPUSCULAR HEMOGLOBIN 31.2 PG (27.0-31.0); MEAN CORPUSCULAR HGB CONC 33.2 g/dL (33.0-36.5); MEAN PLATELET VOLUME 9.9 FL (7.4-10.4); MONOCYTES # (AUTO) 0.8 X10'3 (0-0.9); MONOCYTES % (AUTO) 11.5 % (2-12); PLATELET COUNT 175 X10'3 (140-440); RED BLOOD COUNT 3.34 X10'6 (4.70-6.10); RED CELL DISTRIBUTION WIDTH 15.3 % (11.5-14.5); WHITE BLOOD COUNT 6.9 X10'3 (4.5-11.0)
[2024-10-03 06:28] LABS: ALANINE AMINOTRANSFERASE 32 U/L (12-78); ALBUMIN 2.9 G/DL (3.4-5.0); ALKALINE PHOSPHATASE 127 IU/L (46-116); ANION GAP 9 (8-16); ASPARTATE AMINO TRANSFERASE 36 U/L (10-37); BILIRUBIN,TOTAL 0.4 MG/DL (0.1-1.0); BLOOD UREA NITROGEN 27 MG/DL (7-18); BUN/CREATININE RATIO 20.9 (10.0-20.0); CALCIUM 8.7 MG/DL (8.5-10.1); CHLORIDE 113 MMOL/L (99-107); CREATINE KINASE 97 U/L (39-308); CREATININE 1.29 MG/DL (0.60-1.10); GLUCOSE 112 MG/DL (70-104); MAGNESIUM 1.5 MG/DL (1.5-2.4); SODIUM 146 MMOL/L (135-145); TOTAL CARBON DIOXIDE 23.7 MMOL/L (24-32); TOTAL PROTEIN 5.9 G/DL (6.4-8.2); eCRCL 46 ML/MIN; eGFR 54 ML/MIN
[2024-10-03] MEDS: allopurinol 300 MG tablet PO SCH (09:43)
[2024-10-03] MEDS: cholecalciferol (vitamin D3) 1,000 unit (25mcg) tablet PO SCH (09:43)
[2024-10-03] MEDS: atorvastatin 20mg tablet PO SCH (09:44)
[2024-10-03] MEDS: tamsulosin 0.4mg capsule PO SCH (09:44)
[2024-10-03] MEDS: losartan 50mg tablet PO SCH (09:45)
[2024-10-03] MEDS: aspirin 81mg, enteric-coated 1 TAB TABLET.DR PO ONE (14:50)
[2024-10-03] MEDS: LORazepam 1 MG tablet PO PRN (14:50)
[2024-10-03] MEDS: amLODIPine 5mg tablet PO ONE (16:17)
[2024-10-03] MEDS: labetalol 100mg tablet PO ONE (16:17)
[2024-10-03] MEDS: LidoCAINE 2% Topical Jelly 11mL syringe (UROJET) TOP ONE (16:26)
[2024-10-03] MEDS ORDERED: SENN-360 PO (19:36)
[2024-10-03] MEDS ORDERED: LOSA-415 PO (19:36)
[2024-10-03] MEDS: labetalol 100mg tablet PO SCH (19:37)
[2024-10-03] MEDS: acetaminophen 325mg tablet PO PRN (19:37)
[2024-10-03] MEDS ORDERED: lidocaine patch 5% TOP (19:40)
[2024-10-03] MEDS ORDERED: CARB10DR RIGHTEYE (19:43)
[2024-10-03] MEDS ORDERED: CARB10DR LEFTEYE (19:43)
[2024-10-03] MEDS ORDERED: KETO-96 RIGHTEYE (19:43)
[2024-10-03] MEDS ORDERED: KETO-96 LEFTEYE (19:43)
[2024-10-03] MEDS ORDERED: CAPS57CR5 (19:46)
[2024-10-04] VITALS (7 sets, daily range): BP systolic 137–168; BP diastolic 67–75; PULSE 67–79; RESP 15–18; TEMP 97.8–98; O2SAT 91–95
[2024-10-04] MEDS: LidoCAINE 2% Topical Jelly 11mL syringe (UROJET) TOP ONE (01:02)
[2024-10-04] MEDS: LIDOcaine 5% patch TP SCH (01:06)
[2024-10-04] MEDS: hydrALAZINE 20mg/ml inj. IV PRN (03:37)
[2024-10-04 06:18] LABS: BASOPHILS % (AUTO) 0.8 % (0-1); EOSINOPHILS # (AUTO) 0.4 X10'3 (0-0.9); EOSINOPHILS % (AUTO) 6.8 % (0-6); HEMATOCRIT 30.7 % (42.0-52.0); HEMOGLOBIN 10.3 g/dl (14.0-17.9); LYMPHOCYTES # (AUTO) 2.4 X10'3 (1.1-4.8); LYMPHOCYTES % (AUTO) 41.9 % (21-51); MEAN CORPUSCULAR HEMOGLOBIN 31.1 PG (27.0-31.0); MEAN CORPUSCULAR HGB CONC 33.6 g/dL (33.0-36.5); MEAN CORPUSCULAR VOLUME 92.8 FL (78-98); MEAN PLATELET VOLUME 9.6 FL (7.4-10.4); MONOCYTES # (AUTO) 0.6 X10'3 (0-0.9); MONOCYTES % (AUTO) 10.4 % (2-12); NEUTROPHILS # (AUTO) 2.3 X10'3 (1.8-7.7); NEUTROPHILS % (AUTO) 40.1 % (42-75); PLATELET COUNT 173 X10'3 (140-440); RED CELL DISTRIBUTION WIDTH 15.8 % (11.5-14.5); WHITE BLOOD COUNT 5.8 X10'3 (4.5-11.0)
[2024-10-04 06:22] LABS: ALANINE AMINOTRANSFERASE 33 U/L (12-78); ALBUMIN 2.8 G/DL (3.4-5.0); ALBUMIN/GLOBULIN RATIO 0.9 (1.1-1.5); ALKALINE PHOSPHATASE 123 IU/L (46-116); ANION GAP 9 (8-16); ASPARTATE AMINO TRANSFERASE 35 U/L (10-37); BILIRUBIN,TOTAL 0.5 MG/DL (0.1-1.0); BLOOD UREA NITROGEN 19 MG/DL (7-18); BUN/CREATININE RATIO 16.1 (10.0-20.0); CALCIUM 8.6 MG/DL (8.5-10.1); CHLORIDE 106 MMOL/L (99-107); CREATININE 1.18 MG/DL (0.60-1.10); GLUCOSE 92 MG/DL (70-104); MAGNESIUM 1.3 MG/DL (1.5-2.4); POTASSIUM 3.5 MMOL/L (3.5-5.1); SODIUM 138 MMOL/L (135-145); TOTAL CARBON DIOXIDE 23.4 MMOL/L (24-32); TOTAL PROTEIN 5.8 G/DL (6.4-8.2); eCRCL 50 ML/MIN; eGFR 60 ML/MIN
[2024-10-04] MEDS ORDERED: normal saline 1000ml 1,000 ML IV SCH (07:10)
[2024-10-04] MEDS: amLODIPine 5mg tablet PO SCH (11:00)
[2024-10-04] MEDS: hydrALAZINE 25 MG tablet PO SCH ×3 (11:00→16:01)
[2024-10-04] MEDS: aspirin 81mg, enteric-coated 1 TAB TABLET.DR PO SCH (11:01)
[2024-10-04] MEDS: losartan 50mg tablet PO SCH (11:02)
[2024-10-04] MEDS: hydrALAZINE 20mg/ml inj. IV ONE (12:10)
[2024-10-04] MEDS ORDERED: LABE100T8 PO (13:33)
[2024-10-04] MEDS ORDERED: LOSA50TA64 PO (13:33)
[2024-10-04] MEDS ORDERED: ISOS30TA84 PO (13:33)
[2024-10-04] MEDS ORDERED: ASPI-1071 PO (13:33)
[2024-10-04] MEDS ORDERED: MEMA10TA22 PO (13:33)
[2024-10-04] MEDS ORDERED: HYDR25TA90 PO (13:33)
[2024-10-04] MEDS ORDERED: HYDR-3973 PO ×2 (13:33→13:36)
[2024-10-04] MEDS ORDERED: DONE10TA44 PO (13:33)
[2024-10-04] MEDS ORDERED: NOR5T PO (13:39)
[2024-10-04] MEDS ORDERED: allopurinol 100mg tablet PO SCH (14:49)
[2024-10-04] MEDS: magnesium Cl slow-release 64mg tablet PO PRN (16:12)
[2024-10-04] MEDS ORDERED: LidoCAINE 2% Topical Jelly 11mL syringe (UROJET) TOP ONE (19:10)
== END 2024-10-04 20:40 | disposition home health service (06) | DRG 189 ==
LOC: ER 12:58 → ED HOLD 14:38 → ORTHO 4S 21:10
PROVIDERS: ADMIT Nurse Practitioner Family; ATTEND Nurse Practitioner Family
PROC: BW251ZZ Computerized Tomography (CT Scan) of Chest, Abdomen and Pelvis using Low Osmolar Contrast (ICD-10-PCS; principal; 2024-10-02)
DX: J96.01 Acute respiratory failure with hypoxia (principal); G93.41 Metabolic encephalopathy; I16.1 Hypertensive emergency; N17.9 Acute kidney failure, unspecified; I50.32 Chronic diastolic (congestive) heart failure; I13.0 Hypertensive heart and chronic kidney disease with heart failure and stage 1 through stage 4 chronic kidney disease, or unspecified chronic kidney disease; E87.0 Hyperosmolality and hypernatremia; N40.0 Benign prostatic hyperplasia without lower urinary tract symptoms; F03.90 Unspecified dementia, unspecified severity, without behavioral disturbance, psychotic disturbance, mood disturbance, and anxiety; G89.4 Chronic pain syndrome; G47.33 Obstructive sleep apnea (adult) (pediatric); N18.30 Chronic kidney disease, stage 3 unspecified; R33.9 Retention of urine, unspecified; E66.812 Obesity, class 2; Z68.38 Body mass index [BMI] 38.0-38.9, adult; Z79.899 Other long term (current) drug therapy; Z90.49 Acquired absence of other specified parts of digestive tract
CPT/HCPCS: 36415; 36600; 70450; 71045; 71250; 73521; 74176; 80048; 80053; 80076; 80305; 81001; 82550; 82803; 82948; 83605; 83690; 83735; 83880; 84145; 84484; 85018; 85025; 85610; 85730; 87081; 93005; 94660; 94760; 96372; 96374; 97161; 97530; 99285; A4314; A4358; A4615; A6258; A6590; C1758; G0378; J0360; J1171; J1630; J1644; J2270; J2405; J3010; J3490; J7030; J7120

== ENCOUNTER 2024-12-09 12:56 | Inpatient (IN) | payer OTHER, MEDICARE ==
[~2024-12-09] VITALS: Ht 182.9 cm; Wt 120.0 kg
[~2024-12-09 12:56] MED LIST changes: +ASPI-1071 PO; +CAPS57CR5; +CARB10DR LEFTEYE; +CARB10DR RIGHTEYE; +CETI10TA15 PO; +DONE10TA44 PO; +HYDR25TA90 PO; +ISOS30TA84 PO; +KETO-96 LEFTEYE; +KETO-96 RIGHTEYE; +LABE100T8 PO; +MEMA10TA22 PO; +NOR5T PO; +SENN-360 PO; +lidocaine patch 5% TOP
--- NOTE | 2024-12-09 13:09 | ELECTROCARDIOGRAPH REPORT ---
[facility] Test Date: 2024-12-09 Test Time: 13:06:35 Pat Name: CHUCK LOVE Department: [facility] Patient ID: [facility]-[id number] Room: ORTHO 4020 Gender: M Title Abstractor: : 1950 Requested By: CHERI MCDANIEL Order Number: [id number] Reading MD: Dr. Shiva Chong Measurements Intervals [place] Rate: 56 P: -20 MO: 205 QRS: -52 QRSD: 113 T: 37 QT: 443 QTc: 428 Interpretive Statements Pacemaker spikes or artifacts Sinus bradycardia Left anterior fascicular block Anterior infarct, old Electronically Signed On 12-14-2024 18:39:[address] Shiva Chong Please click the below link to view image of tracing.
[2024-12-09 13:35] LABS: BASOPHILS % (AUTO) 0.7 % (0-1); EOSINOPHILS # (AUTO) 0.4 X10'3 (0-0.9); EOSINOPHILS % (AUTO) 7.7 % (0-6); HEMATOCRIT 33.4 % (42.0-52.0); HEMOGLOBIN 11.2 g/dl (14.0-17.9); MEAN CORPUSCULAR HGB CONC 33.4 g/dL (33.0-36.5); MEAN CORPUSCULAR VOLUME 92.9 FL (78-98); MONOCYTES # (AUTO) 0.5 X10'3 (0-0.9); MONOCYTES % (AUTO) 9.9 % (2-12); NEUTROPHILS # (AUTO) 2.5 X10'3 (1.8-7.7); NEUTROPHILS % (AUTO) 44.7 % (42-75); PLATELET COUNT 224 X10'3 (140-440); RED CELL DISTRIBUTION WIDTH 15.5 % (11.5-14.5); WHITE BLOOD COUNT 5.5 X10'3 (4.5-11.0)
[2024-12-09 13:40] LABS: ALBUMIN 3.1 G/DL (3.4-5.0); ANION GAP 10 (8-16); BLOOD UREA NITROGEN 26 MG/DL (7-18); BUN/CREATININE RATIO 16.9 (10.0-20.0); CALCIUM 9.4 MG/DL (8.5-10.1); CHLORIDE 108 MMOL/L (99-107); CREATININE 1.54 MG/DL (0.60-1.10); GLUCOSE 97 MG/DL (70-104); POTASSIUM 4.4 MMOL/L (3.5-5.1); SODIUM 140 MMOL/L (135-145); TOTAL CARBON DIOXIDE 22.1 MMOL/L (24-32); eCRCL 45 ML/MIN; eGFR 44 ML/MIN
--- NOTE | 2024-12-09 13:57 | Physician Documentation ---
History of Present Illness ~ Chief Complaint: Chest Pain Stated Complaint: CP Time Seen by MD: 13:28 Primary Medical Doctor: JOSE KWAN 74-year-old male presenting with reports of chest pain earlier today. His reports that the patient woke up this morning and was complaining of pain in his chest. Additionally he seemed very confused and did not know where he was. Currently the patient states that his chest pain has resolved however his entire body hurts. He specifically complains of severe lower back pain and states that any type of movement worsens the pain. No reports of any nausea, vomiting or other associated symptoms. Medication Reconciliation Allergies: Coded Allergies: No Known Allergies (Unverified , 10/02/24) Scheduled Allopurinol (Allopurinol), 1 TAB PO DAILY, (Reported) Amlodipine Besylate (Amlodipine Besylate), 10 MG PO DAILY Aspirin (Ecotrin*), 1 TAB PO DAILY Atorvastatin Calcium (Lipitor), 1 TAB PO DAILY, (Reported) Capsaicin (Arthritis Pain Relieving), BID, (Reported) Carboxymethyl/Glycerin/Poly80 (Refresh Optive Advanced Drops), 1 DROP RIGHTEYE BID, (Reported) Carboxymethyl/Glycerin/Poly80 (Refresh Optive Advanced Drops), 1 DROP LEFTEYE BID, (Reported) Cetirizine HCl (Cetirizine HCl), 1 TAB PO DAILY Cholecalciferol (Vitamin D3) (Vitamin D3), 2 CAP PO DAILY, (Reported) Colchicine (Colchicine), 1 TAB PO Q12H, (Reported) Donepezil Hcl (Donepezil Hcl), 1 TAB PO DAILY Hydralazine Hcl* (Apresoline*), 25 MG PO Q6H Isosorbide Mononitrate (Isosorbide Mononitrate Er), 1 TAB PO DAILY Ketotifen Fumarate (Ketotifen Fumarate), 1 DROP RIGHTEYE Q12H, (Reported) Ketotifen Fumarate (Ketotifen Fumarate), 1 DROP LEFTEYE Q12H, (Reported) Labetalol Hcl (Labetalol Hcl), 100 MG PO BID Losartan Potassium (Losartan Potassium), 100 MG PO DAILY Memantine HCl (Memantine HCl), 1 TAB PO DAILY Metoprolol Succinate (Metoprolol Succinate), 1 TAB PO DAILY, (Reported) Omeprazole (Omeprazole), 1 CAP PO BID, (Reported) Sennosides (Senna), 2 TAB PO DAILY, (Reported) Tamsulosin Hcl* (Flomax*), 2 CAP PO DAILY, (Reported) Scheduled PRN Baclofen (Baclofen), 1 TAB PO Q12H PRN for muscle spasms, (Reported) Hydrocodone Bit/Acetaminophen (Hydrocodone-Apap 10-325 Tablet), 1 TAB PO QID PRN PRN for pain, (Reported) Hydrocodone Bit/Acetaminophen (Hydrocodone-Apap 10-325 Tablet), 1 TAB PO Q6H PRN for severe pain (7-10) Miscellaneous Medications Unable to Obtain Medications (Unable to Obtain Medications), (Reported) [lidocaine patch 5%], TOP, (Reported) Past Medical History Past Medical History: Constipation, *RENAL/* Past Surgical History: appendectomy Patient History: Patient reports no known family medical history. Drug Use: none Review of Systems All Other Systems at this time: Reviewed and Negative Physical Exam Vital Signs: Temperature: 97.5, Source: Oral, Heart Rate: 61, Respiratory Rate: 15, BP: 135/49, Pulse Oximetry: 100, Weight: 120.000 Physical Exam I have reviewed the triage vitals. CONST: Well developed and well nourished. In mild distress HENT: Head Atraumatic EYES: Pupils are equal, round and reactive to light. Normal conjunctiva NECK: Normal range of motion. Supple. CARDIO: Normal rate and regular rhythm. No murmurs, rubs, or gallops. S1, S2. PULM/CHEST: No respiratory distress. Lungs clear to auscultation. No wheeze ABD: Soft and nontender. Nondistended. Bowel sounds normal. No guarding. : Marino catheter is in place. MSK: 3+ pitting edema in the bilateral lower extremities. Extremities are tender to palpation. Attempts at range of motion of his back is extremely painful. NEURO: Alert and oriented to person, place and time. Moving all extremities SKIN: Warm and dry. PSYCH: Normal mood and affect. Good eye contact. Progress Results/Orders Results/Orders Orders - CHERI MCDANIEL MD Chest,Single View (12/09/24 13:00) Monitor (12/09/24 13:00) Saline Lock (12/09/24 13:00) Oxygen (12/09/24 13:00) Hs Troponin I W Calculations (12/09/24 16:00) Culture Blood (12/09/24 13:52) Ct Head (12/09/24 13:52) Covid19 Binax Poc Result Entry (12/09/24 13:54) Piperacillin/Tazo 3.375gm/50ml (Zosyn 3. (12/09/24 16:30) Page Hospitalist (12/09/24 16:30) Fill Out Med Reconciliation (12/09/24 16:30) Ct Abdomen Pelvis (12/09/24 16:30) Completed Orders - CHERI MCDANIEL MD Chest,Single View (12/09/24 13:00) Cbc/Diff (12/09/24 13:00) BMP (12/09/24 13:00) Electrocardiogram (12/09/24 13:00) Hs Troponin I W Calculations (12/09/24 13:00) Hs Troponin I W Calculations (12/09/24 15:00) Lacticsepsis (12/09/24 13:52) Procalcitonin (12/09/24 13:52) Ammonia (12/09/24 13:52) Ct Head (12/09/24 13:52) Normal Saline 1000ml (Sodium Chloride 10 (12/09/24 13:55) Morphine 2mg/Ml Inj. (Morphine Inj.) (12/09/24 13:55) Ondansetron Inj. (Zofran 4mg/2ml Vial) (12/09/24 13:55) Ua With Microscopic (12/09/24 13:15) Liver Panel (12/09/24 13:16) Morphine 4mg/Ml Inj. (Morphine Inj.) (12/09/24 16:30) Medications Received in ER Medications (Trade) Dose Ordered Sig/Scotty Route PRN Reason Start Time Stop Time Status Last Admin Dose Admin Sodium Chloride 1,000 ml @ 1,000 mls/hr ONCE ONCE IV 12/09/24 13:55 12/09/24 14:54 DC 12/09/24 13:58 1,000 MLS/HR (morphine inj.) 2 mg ONCE ONCE IV 12/09/24 13:55 12/09/24 13:56 DC 12/09/24 14:03 2 MG (Zofran 4mg/2ml vial) 4 mg ONCE ONCE IV 12/09/24 13:55 12/09/24 13:59 DC 12/09/24 14:01 4 MG Piperacillin/ Tazobactam/ Dextrose 50 ml @ 12.5 mls/hr ONCE ONCE IV 12/09/24 16:30 12/09/24 20:29 12/09/24 16:45 12.5 MLS/HR (morphine inj.) 4 mg ONCE ONCE IV 12/09/24 16:30 12/09/24 16:36 DC 12/09/24 16:44 4 MG Vital Signs 12/09/24 12/09/24 12/09/24 12/09/24 13:01 13:11 14:03 16:44 Temp 97.5 Pulse 59 61 Resp 20 15 20 24 B/P (MAP) 246/77 135/49 (77) Pulse Ox 97 100 Laboratory Tests Test 12/09/24 13:15 12/09/24 13:16 12/09/24 14:26 12/09/24 15:14 Urine Specimen Description Marino cath Urine Color Straw Urine Clarity Slightly cloudy Urine pH 6.0 Urine Specific [place] 1.015 Urine Protein 100 H Urine Glucose (UA) Negative Urine Ketones Negative Urine Occult Blood Large H Urine Nitrite Negative Urine Bilirubin Negative Urine Urobilinogen 0.2 Urine Leukocyte Esterase Small H Urine RBC 50-100 Urine WBC Tntc H Urine WBC Clumps Moderate Urine Squamous Epithelial Cells None seen Urine Bacteria 1+ Urine Mucus None seen Volume Urine Centrifuged 10 ml Urine Comment White Blood Count 5.5 Red Blood Count 3.60 L Hemoglobin 11.2 L Hematocrit 33.4 L Mean Corpuscular Volume 92.9 Mean Corpuscular Hemoglobin 31.0 Mean Corpuscular Hemoglobin Concent 33.4 Red Cell Distribution Width 15.5 H Platelet Count 224 Mean Platelet Volume 9.0 Neutrophils (%) (Auto) 44.7 Lymphocytes (%) (Auto) 37.0 Monocytes (%) (Auto) 9.9 Eosinophils (%) (Auto) 7.7 H Basophils (%) (Auto) 0.7 Neutrophils # (Auto) 2.5 Lymphocytes # (Auto) 2.0 Monocytes # (Auto) 0.5 Eosinophils # (Auto) 0.4 Basophils # (Auto) 0.0 CBC Comment Sodium Level 140 Potassium Level 4.4 Chloride Level 108 H Carbon Dioxide Level 22.1 L Anion Gap 10 Blood Urea Nitrogen 26 H Creatinine 1.54 H Estimated GFR/1.73 m2 44 BUN/Creatinine Ratio 16.9 Glucose Level 97 Calcium Level 9.4 Total Bilirubin 0.3 Direct Bilirubin 0.1 Aspartate Amino Transf (AST/SGOT) 35 Alanine Aminotransferase (ALT/SGPT) 35 Alkaline Phosphatase 129 H Troponin I High Sensitivity 14 Total Protein 6.8 Albumin 3.1 L Globulin 3.7 Albumin/Globulin Ratio 0.8 L Procalcitonin < 0.05 Chemistry Comments SARS-CoV-2 Antigen (Rapid) Negative Lactic Acid Level 1.0 Ammonia < 10 L Test 12/09/24 15:35 Troponin I High Sensitivity 14 Troponin I High Sens Percent Delta 0 Troponin I Hi Sens Absolute Change 0 EKG/XRAY/CT/US/VASC/MRI CT : Impression AM: CT CT HEAD INDICATION: confusion TECHNIQUE: CT of the head without intravenous contrast. Radiation Dose : 1. Head: CT Dose: CTDI volume is 70 mGy. Dose-length product is 1325 mGy*cm The dose indicators for CT are the volume Computed Tomography (CT) Dose Index (CTDIvol) and the Dose Length Product (DLP), and are measured in units of mGy and mGy-cm, respectively. These indicators are not patient dose, but values generated from the CT scanner acquisition factors. The report includes radiation exposure data for exposures received during this examination. COMPARISON: MR MRI HEAD on DOS: 10/03/24, CT CT STROKE ALERT on DOS: 10/02/24, CT CT HEAD on DOS: 09/08/24, CT CT HEAD on DOS: 06/25/24, CT CT HEAD on DOS: 04/12/24 FINDINGS: There is no evidence of acute intracranial hemorrhage, extra-axial collection, mass effect, midline shift, herniation or hydrocephalus. The ventricles, sulci and cisterns are age appropriate. The samano-white differentiation is intact. Patchy periventricular and subcortical white matter hypoattenuation is nonspecific but may be related to small vessel ischemic disease. The visualized paranasal sinuses and mastoid air cells are clear. The surrounding soft tissues and osseous structures are unremarkable. IMPRESSION: 1. No acute intracranial abnormality. 2. Chronic microvascular ischemic changes. Medical Decision Making Additional Information 74-year-old male presenting with what appears to be a UTI causing encephalopathy. His urinalysis has blood, plenty of WBCs and WBC clumps as well as leukocyte esterase. Furthermore he endorses acute on chronic lower back pain. Back pain has worsened. His chest pain has now resolved. Cardiac workup so far is negative with negative troponin and EKG. However he does need ACS rule out and further risk stratification given his risk factors. CT of the head was unremarkable. Patient will be admitted for further treatment and care. Departure Disposition: ADMITTED INPATIENT Admitted to Inpatient Unit: to hospitalist Admission Level of Care: Med/Surg with Tele Impression: Primary Impression: Urinary tract infection Additional Impressions: Encephalopathy Chest pain Condition: Guarded Referrals: NO PRIMARY CARE PROVIDER (PCP) CHERI MCDANIEL MD Dec 09, 2024 13:57
[2024-12-09] MEDS: normal saline 1000ml 1,000 ML IV ONE (13:58)
[2024-12-09] MEDS: ondansetron/PF 4mg/2ml inj IV ONE (14:01)
[2024-12-09] MEDS: morphine 2 MG/ML inj. syringe IV ONE (14:03)
[2024-12-09 14:30] LABS: BILIRUBIN,URINE NEGATIVE (Neg); CLARITY,URINE SLIGHTLY CLOUDY (Clear); COLOR,URINE STRAW (Yellow); GLUCOSE, URINE NEGATIVE (Neg); KETONES,URINE NEGATIVE (Neg); LEUKOCYTE ESTERASE ,URINE SMALL (Neg); NITRITES, URINE NEGATIVE (Neg); OCCULT BLOOD,URINE LARGE (Neg); PROTEIN,URINE 100 mg/dl (Neg); UROBILINOGEN,URINE 0.2 E.U/dL (0.2-1.0)
[2024-12-09 14:39] LABS: UA COLLECTION TYPE FOLEY CATH
[2024-12-09 14:42] LABS: RBC,URINE 50-100 /HPF (0-2); WBC,URINE TNTC /HPF (0-4)
[2024-12-09 14:43] LABS: BACTERIA,URINE 1+ /HPF (Neg); MUCUS STRANDS NONE SEEN /LPF (Neg); SQUAMOUS EPITHELIAL CELL,UR NONE SEEN /LPF (FEW); WBC CLUMPS,URINE MODERATE /HPF (NEGATIVE)
--- NOTE | 2024-12-09 14:52 | RADIOLOGY REPORT ---
EXAM: DI CHEST,SINGLE VIEW CLINICAL HISTORY: CP TECHNIQUE: Single AP view of the chest WID: COMPARISON: DI CHEST,SINGLE VIEW on DOS: 10/02/24 FINDINGS: Lines and tubes: None Chest: Cardiomegaly and mild pulmonary vascular congestion. Calcified plaque projects over the aortic arch. No pleural effusion, pneumothorax, or consolidation. Linear bibasilar scarring or atelectasis. The osseous structures are grossly intact. Multilevel thoracic spondylosis. IMPRESSION: Cardiomegaly and mild pulmonary vascular congestion.
--- NOTE | 2024-12-09 14:57 | RADIOLOGY REPORT ---
EXAM: CT CT HEAD INDICATION: confusion TECHNIQUE: CT of the head without intravenous contrast. Radiation Dose : 1. Head: CT Dose: CTDI volume is 70 mGy. Dose-length product is 1325 mGy*cm The dose indicators for CT are the volume Computed Tomography (CT) Dose Index (CTDIvol) and the Dose Length Product (DLP), and are measured in units of mGy and mGy-cm, respectively. These indicators are not patient dose, but values generated from the CT scanner acquisition factors. The report includes radiation exposure data for exposures received during this examination. COMPARISON: MR MRI HEAD on DOS: 10/03/24, CT CT STROKE ALERT on DOS: 10/02/24, CT CT HEAD on DOS: , CT CT HEAD on DOS: 06/25/24, CT CT HEAD on DOS: 04/12/24 FINDINGS: There is no evidence of acute intracranial hemorrhage, extra-axial collection, mass effect, midline s hift, herniation or hydrocephalus. The ventricles, sulci and cisterns are age appropriate. The samano-white differentiation is intact. Patchy periventricular and subcortical white matter hypoattenuation is nonspecific but may be related to small vessel ischemic disease. The visualized paranasal sinuses and mastoid air cells are clear. The surrounding soft tissues and osseous structures are unremarkable. IMPRESSION: 1. No acute intracranial abnormality. 2. Chronic microvascular ischemic changes. Radiation optimization: All CT scans at this facility use at least one of these dose optimization carolyn hniques: automated exposure control mA and/or kV adjustment per patient size (includes targeted exam s where dose is matched to clinical indication) or iterative reconstruction.
[2024-12-09 15:05] LABS: ALANINE AMINOTRANSFERASE 35 U/L (12-78); ALBUMIN/GLOBULIN RATIO 0.8 (1.1-1.5); ALKALINE PHOSPHATASE 129 IU/L (46-116); ASPARTATE AMINO TRANSFERASE 35 U/L (10-37); BILIRUBIN,DIRECT 0.1 MG/DL (0-0.3); BILIRUBIN,TOTAL 0.3 MG/DL (0.1-1.0); TOTAL PROTEIN 6.8 G/DL (6.4-8.2)
[2024-12-09 16:00] LABS: AMMONIA < 10 UMOL/L (11-32)
[2024-12-09] MEDS ORDERED: HYDROcodone/acetaminophen 5mg/325mg tablet PO PRN (16:40)
[2024-12-09] MEDS ORDERED: acetaminophen 325mg tablet PO PRN (16:40)
[2024-12-09] MEDS ORDERED: magnesium Cl slow-release 64mg tablet PO PRN (16:40)
[2024-12-09] MEDS ORDERED: ondansetron/PF 4mg/2ml inj IV PRN (16:40)
[2024-12-09] MEDS ORDERED: magnesium sulf-water 2g/50mL 50 ML IV PRN (16:40)
[2024-12-09] MEDS ORDERED: potassium Cl 40MEQ/1/2NS 520ml 520 ML IV PRN (16:40)
[2024-12-09] MEDS ORDERED: mag hydrox/Alum hydrox/simeth 30ml oral suspension PO PRN (16:40)
[2024-12-09] MEDS ORDERED: morphine 2 MG/ML inj. syringe IV PRN (16:40)
[2024-12-09] MEDS ORDERED: potassium Cl 20 mEq SR tablet PO PRN ×2 (16:40)
[2024-12-09] MEDS ORDERED: magnesium sulf-water 4G/100mL 100 ML IV PRN (16:40)
[2024-12-09] MEDS ORDERED: magnesium hydroxide 30ml (MOM) UD suspension PO PRN (16:40)
[2024-12-09] MEDS: morphine 4 MG/ML inj SYRINge IV ONE (16:44)
[2024-12-09] MEDS: piperacillin/tazo 3.375gm/50ml 50 ML IV ONE (16:45)
[2024-12-09] MEDS: normal saline 1000ml 1,000 ML IV SCH ×2 (17:26→17:43)
--- NOTE | 2024-12-09 17:37 | RADIOLOGY REPORT ---
COMPUTERIZED TOMOGRAPHY ABDOMEN AND PELVIS WITHOUT CONTRAST REASON FOR EXAM: BL flank pain COMPARISON: CT CT CHEST ABDOMEN PELVIS on DOS: 10/02/24, CT CT ABDOMEN PELVIS on DOS: 09/09/24, CT CT A BDOMEN PELVIS on DOS: 04/10/23, CT ABDOMEN PELVIS on DOS: 03/25/22 TECHNIQUE: Spiral scans were acquired from the diaphragm to the symphysis pubis without intravenous c ontrast administration. 2-D coronal and sagittal reformatted images were provided. Radiation optimiza tion: All CT scans at this facility use at least one of these dose optimization techniques: Automated exposure control mA and/or kV adjustment per patient size (includes targeted exams where dose is mat ched to clinical indication) or iterative reconstruction. RADIATION DOSE: CTDI: 36 mGy DLP: 1928 mGy-cm FINDINGS: There is minimal atelectasis at the visualized lung bases. There is no pleural effusion. There is no pericardial effusion. There is extensive coronary artery calcification. There is a large hiatal lisa ia containing the majority of the stomach. The spleen is not enlarged. The liver contour appears somewhat nodular. Evaluation of the abdominal o rgans is suboptimal in the absence of intravenous contrast. No calcified gallstone is identified. The re is no pericholecystic edema. Unenhanced appearance of the pancreas is grossly unremarkable. The a drenal glands are normal. The kidneys are similar in size. There is unchanged appearance of right randy al cortical simple cysts which require no dedicated follow-up. There is no renal, ureteral, or bladde r calculus. There is no hydronephrosis of either kidney. There is no abdominal aortic aneurysm. Ther e is mild atherosclerosis. The urinary bladder appears thick walled. There is a Marino catheter ballo on within the urinary bladder. The prostate and seminal vesicles are within normal limits. There is mild diffuse colonic diverticulosis without evidence of diverticulitis. The appendix is not seen. The re is no inflammatory change about the cecum to suggest appendicitis. There is right psoas bursitis. There is a right hip effusion. There is complete loss of the right hip joint space with deformity of the joint. There are degenerative changes throughout the visualized spine. No acute osseous abnormal ity is identified. IMPRESSION: No renal, ureteral, or bladder calculus. No hydronephrosis of either kidney. The urinary bladder appears thick walled. Correlate clinically for possible cystitis. Severe right hip osteoarthritis with joint effusion. There is also right psoas bursitis.
[2024-12-09 19:10] VITALS: BP 162/75; PULSE 65; RESP 18; TEMP 98.5; O2SAT 94
[2024-12-09] MEDS: K and/or MAG REPLACEMENT MC SCH (20:00)
--- NOTE | 2024-12-09 20:07 | HISTORY AND PHYSICAL-Residence ---
History & Physical Providers to CC Resident Creating Document: VASQUEZ SANTIAGOCHRISTIE, RES ~ History of Present Illness Primary Medical Doctor: [facility] Reason for Admit\Complaint: Altered level of consciousness History of Present Illness PCP: [facility]. 74-year-old male patient with past medical history hypertension, chronic back pain obstructive sleep apnea, baseline dementia, came to the hospital with chief complaint of altered level of consciousness. (Anna Pineda) who was at the bedside states that the patient has been getting confused during the last two months on and off getting worse during the last week. Exacerbating even more during this morning, as per patient's the patient is completely disoriented, screaming of pain. The patient currently states that he has pain in the right hip with radiation to the right lower extremity. Currently denies any chest pain, shortness of breath, palpitations or urinary symptoms. Allergies: Coded Allergies: No Known Allergies (Unverified , 10/02/24) Home Medications Home Medications Active Amlodipine Besylate 5 Mg Tablet 10 Mg PO DAILY 90 Days Hydrocodone-Apap 10-325 Tablet (Acetaminophen/Hydrocodone Bitart) 10mg/325mg Tablet 1 Tab PO Q6H PRN 7 Days Apresoline* (Hydralazine HCl) 25 Mg Tablet 25 Mg PO Q6H 90 Days Isosorbide Mononitrate Er (Isosorbide Mononitrate) 30 Mg Tab.er.24h 1 Tab PO DAILY 90 Days Ecotrin* (Aspirin) 81 Mg Tablet.dr 1 Tab PO DAILY 90 Days Memantine HCl 10 Mg Tablet 1 Tab PO DAILY 90 Days Donepezil Hcl 10 Mg Tablet 1 Tab PO DAILY 90 Days Losartan Potassium 50 Mg Tablet 100 Mg PO DAILY 90 Days Labetalol Hcl 100 Mg Tablet 100 Mg PO BID 30 Days Cetirizine HCl 10 Mg Tablet 1 Tab PO DAILY 30 Days Reported Arthritis Pain Relieving (Capsaicin) 0.075 % Cream..g. BID Refresh Optive Advanced Drops (Carboxymethyl/Glycerin/Poly80) 0.5 %-1 %-0.5 % Drops 1 Drop LEFTEYE BID Refresh Optive Advanced Drops (Carboxymethyl/Glycerin/Poly80) 0.5 %-1 %-0.5 % Drops 1 Drop RIGHTEYE BID Ketotifen Fumarate 0.025 % (0.035 %) Drops 1 Drop LEFTEYE Q12H Ketotifen Fumarate 0.025 % (0.035 %) Drops 1 Drop RIGHTEYE Q12H [lidocaine patch 5%] 5% TOP Senna (Sennosides) 8.6 Mg Tablet 2 Tab PO DAILY 25 Days Unable to Obtain Medications (Non-Formulary Medication) Each Colchicine 0.6 Mg Tablet 1 Tab PO Q12H 30 Days Hydrocodone-Apap 10-325 Tablet (Acetaminophen/Hydrocodone Bitart) 10mg/325mg Tablet 1 Tab PO QID PRN PRN Flomax* (Tamsulosin HCl) 0.4 Mg Cap.sr.24h 2 Cap PO DAILY 30 Days Omeprazole 20 Mg Capsule.dr 1 Cap PO BID 30 Days Metoprolol Succinate 50 Mg Tab.sr.24h 1 Tab PO DAILY 30 Days Vitamin D3 (Cholecalciferol (Vitamin D3)) 50 Mcg (2000 Unit) Capsule 2 Cap PO DAILY 30 Days Baclofen 10 Mg Tablet 1 Tab PO Q12H PRN 30 Days Lipitor (Atorvastatin Calcium) 40 Mg Tablet 1 Tab PO DAILY 30 Days Allopurinol 300 Mg Tablet 1 Tab PO DAILY 30 Days Past Medical History Past Medical History Hypertension. Dementia. Chronic diastolic heart failure. Chronic pain syndrome. Past Surgical History Surgical History Comment Umbilical hernia repair four years ago. Family History Family History: Patient reports no known family medical history. Past Social History Smoking: Non-Smoker Alcohol Use: None Drug Use: None Lives with: Family Lives In: Home Occupation: retired ROS All Other Systems: Reviewed and Negative Exam Vitals: Vital Signs Date Time Temp Pulse Resp B/P (MAP) Pulse Ox O2 Delivery O2 Flow Rate FiO2 12/09/24 18:53 65 16 147/77 (100) 98 12/09/24 13:01 97.5 Physical exam: General: The patient is awake, alert, oriented to person but not in place or time. HEENT: Conjunctive are pink, sclerae clear, no icterus, pupil is equal in both sides, reactive to light, no ear discharge, no pharyngeal erythema or an edema. Neck: Supple, no JVD, no lymphadenopathy and thyromegaly. Chest: Equal air entry on both lungs, no additional sounds no rhonchi no wheezing at the moment. Cardiovascular: S1-S2 regular sinus rhythm and, regular rate, no gallops, no rubs, no murmurs Abdomen: No visible peristalsis, Bowel sounds present on auscultation, soft, nontender, no guarding, no rigidity Extremities: No obvious deformities, 1+ pitting pedal edema bilaterally, capillary refill intact, peripheral pulsations are intact on both sides, tenderness in the level of the right hip. Presence of Marino catheter. Central Nervous System: No focal neurological deficits, no sensory weakness in all 4 extremities, strength 2/5 in bilateral lower extremities, could move all 4 extremities, 2+ deep tendon reflexes, negative Babinski. Musculoskeletal: No joint swelling, deformities, inflammations, and no scoliosis and back tenderness Skin: Warm and dry. Diagnostic Data Last Recorded Lab Results: 12/09/24 1316 12/09/24 1316 Advance Care Planning Advanced Care plannin - 30 Minutes (I spent a total of 17 minutes on reviewing various resuscitative measures/ACP with the patient at the time of admission. The patient has decided on a full code status.) Additional Plan Assessment and plan: 74-year-old male patient came to the hospital with chief complaint of altered level of consciousness. Altered level of consciousness: Metabolic encephalopathy likely secondary to urinary tract infection: Patient came to the hospital with chief complaint of altered level of consciousness. Urinalysis positive for urinary tract infection. Follow-up urine and blood cultures. Follow-up CRP, ESR, procalcitonin. Follow-up TSH. Ceftriaxone 1 g IV daily. Culturelle [address] mmu b.i.d. Possible Acute kidney injury likely secondary to dehydration: Creatinine 1.54, GFR 44, BUN/creatinine ratio 16.9. Baseline creatinine around 1.20. Follow-up urine lytes. NS at 80 mL/hour. Normocytic normochromic anemia: Hemoglobin 11.2, hematocrit 33.4, MCV 92.9. Follow-up iron studies. Obstructive sleep apnea: CPAP at night. Code status: Full code DVT prophylaxis: SCDs and heparin. Analgesia/sedation: Morphine/[place] Line/tube: PIV GI prophylaxis: Protonix Nutrition: Regular diet after passing swallow test. PT: Ordered Prognosis: Guarded Disposition: The patient will be admitted to ortho floor. Christie Santiago Internal Medicine Resident [facility] Date of Service: Dec 09, 2024 Billing Provider: RAJIV POMPA MD Common Visit Codes: [id number] INP/OBS CARE (HIGH) Secondary Visit Codes: [id number] CARE PLAN 30 MINUTES CHRISTIE HERNADEZ, RES Dec 09, 2024 20:07 RAJIV POMPA MD Dec 12, 2024 08:08
[2024-12-09] MEDS: morphine 2 MG/ML inj. syringe IV PRN (20:53)
[2024-12-09 21:23] LABS: % IRON SATURATION 25 % (11-46); IRON 79 UG/DL (53-167); TOTAL IRON BINDING CAPACITY 311 UG/DL (259-388)
[2024-12-09 21:34] LABS: C-REACTIVE PROTEIN 0.75 MG/DL (0.0-0.5); THYROID STIMULATING HORMONE 1.48 ulU/ml (0.34-4.50)
[2024-12-09 22:00] VITALS: BP 148/65; PULSE 64; RESP 18; TEMP 98.8; O2SAT 94
[2024-12-09] MEDS: docusate sod 100mg capsule PO SCH (22:10)
[2024-12-09] MEDS: HYDROcodone/acetaminophen 10/325mg tab PO PRN (23:13)
[2024-12-10] VITALS (7 sets, daily range): BP systolic 123–149; BP diastolic 64–76; PULSE 54–70; RESP 14–18; TEMP 98.6–98.9; O2SAT 93–94
[2024-12-10 06:22] LABS: BASOPHILS # (AUTO) 0.1 X10'3 (0-0.2); EOSINOPHILS # (AUTO) 0.4 X10'3 (0-0.9); EOSINOPHILS % (AUTO) 6.8 % (0-6); LYMPHOCYTES # (AUTO) 1.9 X10'3 (1.1-4.8); LYMPHOCYTES % (AUTO) 35.6 % (21-51); MEAN CORPUSCULAR HEMOGLOBIN 30.6 PG (27.0-31.0); MEAN CORPUSCULAR HGB CONC 33.4 g/dL (33.0-36.5); MEAN CORPUSCULAR VOLUME 91.7 FL (78-98); MONOCYTES # (AUTO) 0.5 X10'3 (0-0.9); MONOCYTES % (AUTO) 9.6 % (2-12); NEUTROPHILS # (AUTO) 2.5 X10'3 (1.8-7.7); PLATELET COUNT 205 X10'3 (140-440); RED BLOOD COUNT 3.27 X10'6 (4.70-6.10); RED CELL DISTRIBUTION WIDTH 15.4 % (11.5-14.5); WHITE BLOOD COUNT 5.3 X10'3 (4.5-11.0)
[2024-12-10 06:50] LABS: ALANINE AMINOTRANSFERASE 29 U/L (12-78); ALBUMIN 2.6 G/DL (3.4-5.0); ALBUMIN/GLOBULIN RATIO 0.8 (1.1-1.5); ALKALINE PHOSPHATASE 105 IU/L (46-116); ANION GAP 8 (8-16); ASPARTATE AMINO TRANSFERASE 22 U/L (10-37); BILIRUBIN,TOTAL 0.3 MG/DL (0.1-1.0); BLOOD UREA NITROGEN 20 MG/DL (7-18); BUN/CREATININE RATIO 14.4 (10.0-20.0); CALCIUM 8.7 MG/DL (8.5-10.1); CHLORIDE 109 MMOL/L (99-107); CHOL/HDL RATIO 2.6 (0.00-4.99); CHOLESTEROL 121 MG/DL (0-200); CREATININE 1.39 MG/DL (0.60-1.10); GLUCOSE 84 MG/DL (70-104); HDL CHOLESTEROL 47 MG/DL (35-60); LDL CHOLESTEROL 54 MG/DL (50-100); MAGNESIUM 1.5 MG/DL (1.5-2.4); SODIUM 138 MMOL/L (135-145); TOTAL PROTEIN 5.8 G/DL (6.4-8.2); TRIGLYCERIDES 64 MG/DL (20-135); eCRCL 50 ML/MIN; eGFR 50 ML/MIN
[2024-12-10] MEDS: lactobacillus rhamnosus 10,000 MMU CELLS/CAPSULE PO SCH (08:21)
[2024-12-10] MEDS: heparin, porcine 5000 units/ml vial SQ SCH (08:22)
[2024-12-10] MEDS: pantoprazole 40mg Tablet.DR PO SCH (08:22)
[2024-12-10] MEDS: CefTRIAXone/D5W-Rocephin 1gm 50 ML IV SCH (09:21)
[2024-12-10] MEDS: furosemide 20 MG/2 ML vial IV ONE (12:19)
--- NOTE | 2024-12-10 12:30 | CONSULTATION REPORT ---
History of Present Illness Providers to CC ~ Reason for Admit\Admit Dx: Altered level of consciousness Refering MD: [facility] History of Present Illness 74-year-old male who was admitted with the diagnosis of metabolic encephalopathy secondary to UTI. He has been responding over the past 24 hours to IV antibiotic medications including his mental status is improved with improvement of his mental status he is reporting back pain lower leg pain and right hip pain. When I evaluated this patient was lying comfortably in bed requesting narcotic pain medications. He states that he has had back and hip pain for the past several years. He is currently taking [place] and morphine routinely at home. Examination: Patient does have some right hip pain with internal external rotation. He has gross neurologic function to this right lower extremity with ankle plantar flexion and dorsiflexion. There was no deformity to his lower extremities. They have good distal pulses. CT scan of his pelvis revealed significant degenerative changes with [id number] articulation of the right hip. Osteo arthritic osteophytes are present. There was no destructive lesions however and there was a small psoas bursitis. Assessment: Moderate to severe degenerative joint disease/osteoarthritis right hip and the patient has had some neck chronic narcotic pain management medications. Plan: No acute orthopedic interventions recommended at this time. His pain control is going to be difficult due to hislong term narcotic use. this patient may benifit from a theraputic hip aspiration / injection with a steroid done under flouroscopy by I.R.which can be done as an out patient thank you for the consultation Allergies: Coded Allergies: No Known Allergies (Unverified , 10/02/24) Home Medications Home Medications Active Amlodipine Besylate 5 Mg Tablet 10 Mg PO DAILY 90 Days Hydrocodone-Apap 10-325 Tablet (Acetaminophen/Hydrocodone Bitart) 10mg/325mg Tablet 1 Tab PO Q6H PRN 7 Days Apresoline* (Hydralazine HCl) 25 Mg Tablet 25 Mg PO Q6H 90 Days Isosorbide Mononitrate Er (Isosorbide Mononitrate) 30 Mg Tab.er.24h 1 Tab PO DAILY 90 Days Ecotrin* (Aspirin) 81 Mg Tablet.dr 1 Tab PO DAILY 90 Days Memantine HCl 10 Mg Tablet 1 Tab PO DAILY 90 Days Donepezil Hcl 10 Mg Tablet 1 Tab PO DAILY 90 Days Losartan Potassium 50 Mg Tablet 100 Mg PO DAILY 90 Days Labetalol Hcl 100 Mg Tablet 100 Mg PO BID 30 Days Cetirizine HCl 10 Mg Tablet 1 Tab PO DAILY 30 Days Reported Arthritis Pain Relieving (Capsaicin) 0.075 % Cream..g. BID Refresh Optive Advanced Drops (Carboxymethyl/Glycerin/Poly80) 0.5 %-1 %-0.5 % Drops 1 Drop LEFTEYE BID Refresh Optive Advanced Drops (Carboxymethyl/Glycerin/Poly80) 0.5 %-1 %-0.5 % Drops 1 Drop RIGHTEYE BID Ketotifen Fumarate 0.025 % (0.035 %) Drops 1 Drop LEFTEYE Q12H Ketotifen Fumarate 0.025 % (0.035 %) Drops 1 Drop RIGHTEYE Q12H [lidocaine patch 5%] 5% TOP Senna (Sennosides) 8.6 Mg Tablet 2 Tab PO DAILY 25 Days Unable to Obtain Medications (Non-Formulary Medication) Each Colchicine 0.6 Mg Tablet 1 Tab PO Q12H 30 Days Hydrocodone-Apap 10-325 Tablet (Acetaminophen/Hydrocodone Bitart) 10mg/325mg Tablet 1 Tab PO QID PRN PRN Flomax* (Tamsulosin HCl) 0.4 Mg Cap.sr.24h 2 Cap PO DAILY 30 Days Omeprazole 20 Mg Capsule.dr 1 Cap PO BID 30 Days Metoprolol Succinate 50 Mg Tab.sr.24h 1 Tab PO DAILY 30 Days Vitamin D3 (Cholecalciferol (Vitamin D3)) 50 Mcg (2000 Unit) Capsule 2 Cap PO DAILY 30 Days Baclofen 10 Mg Tablet 1 Tab PO Q12H PRN 30 Days Lipitor (Atorvastatin Calcium) 40 Mg Tablet 1 Tab PO DAILY 30 Days Allopurinol 300 Mg Tablet 1 Tab PO DAILY 30 Days Past Family History Family History: Patient reports no known family medical history. Physical Exam Last Vital Signs Recorded: Temperature: 98.9, Source: Temporal, Heart Rate: 61, Respiratory Rate: 18, BP: 123/69, Pulse Oximetry: 93, Weight: 120.000 Results Diagram Lab Result Diagram: 12/10/24 0536 12/10/24 0536 ENRRIQUE MORLAES MD Dec 10, 2024 12:30
--- NOTE | 2024-12-10 14:00 | PROGRESS NOTE- Residence ---
Progress Note - Resident Providers to CC Resident Creating Document: ADELSO HERNADEZ, RES ~ Antibiotic Timeout Antibiotic Ordered?: Yes Subjective The patient has been evaluated at the bedside. The patient is currently awake, oriented to person, place and time. Still states pain at the level of the right hip well controlled with pain medication. Objective Vital Signs Date Time Temp Pulse Resp B/P (MAP) Pulse Ox O2 Delivery O2 Flow Rate FiO2 12/10/24 12:19 18 12/10/24 12:11 61 123/69 (87) 93 Room Air 12/10/24 10:00 98.9 Physical exam: General: The patient is awake, alert, not agitated, oriented to person, place and time. HEENT: Conjunctive are pink, sclerae clear, no icterus, pupil is equal in both sides, reactive to light, no ear discharge, no pharyngeal erythema or an edema. Neck: Supple, no JVD, no lymphadenopathy and thyromegaly. Chest: Equal air entry on both lungs, no additional sounds no rhonchi no wheezing at the moment. Cardiovascular: S1-S2 regular sinus rhythm and, regular rate, no gallops, no rubs, no murmurs Abdomen: No visible peristalsis, Bowel sounds present on auscultation, soft, nontender, no guarding, no rigidity Extremities: No obvious deformities, 1+ pitting pedal edema bilaterally, capillary refill intact, peripheral pulsations are intact on both sides, tenderness in the level of the right hip. Presence of Marino catheter. Central Nervous System: No focal neurological deficits, no sensory weakness in all 4 extremities, strength 2/5 in bilateral lower extremities, could move all 4 extremities, 2+ deep tendon reflexes, negative Babinski. Musculoskeletal: No joint swelling, deformities, inflammations, and no scoliosis and back tenderness Skin: Warm and dry. Result Diagram: 12/10/24 0536 12/10/24 0536 Assessment Assessment 74-year-old male patient came to the hospital with chief complaint of altered level of consciousness. Plan Plan Altered level of consciousness: Metabolic encephalopathy likely secondary to urinary tract infection/cystitis: Patient came to the hospital with chief complaint of altered level of consciousness. Urinalysis positive for urinary tract infection. Follow-up urine and blood cultures. Follow-up CRP, ESR, procalcitonin. Follow-up TSH. Ceftriaxone 1 g IV daily. Culturelle [address] mmu b.i.d. 12/10/2024: CT scan of the head: Showing no acute intracranial abnormality, chronic microvascular ischemic changes noted. Blood culture showing Gram-positive clusters in one sample possibly contaminated. We will follow up sensitivity. TSH within reference range. ESR 25, 0.75, mildly elevated. Procalcitonin within reference range. Continue ceftriaxone 1 g IV daily day 2. Continue Culturelle b.i.d. Right hip pain: Severe right hip osteoarthritis with joint effusion POA: The patient came to the hospital with chief complaint of right hip pain. CT scan of the abdomen and pelvis: No renal, ureteral, or bladder calculus. No hydronephrosis of either kidney. The urinary bladder appears thick walled. Correlate clinically for possible cystitis. Severe right hip osteoarthritis with joint effusion. There is also right psoas bursitis. Orthopedic surgeon Dr. Panchal consulted: Recommends: No acute orthopedic interventions recommended at this time. His pain control is going to be difficult due to hislong term narcotic use. this patient may benifit from a theraputic hip aspiration / injection with a steroid done under flouroscopy by I.R.which can be done as an out patient. Continue pain management with celecoxib 100 mg b.i.d. [place] as needed. Possible Acute kidney injury likely secondary to dehydration-improving: Creatinine 1.54, GFR 44, BUN/creatinine ratio 16.9. Baseline creatinine around 1.20. Follow-up urine lytes. NS at 80 mL/hour. 12/09/2024: Urine lytes still pending. Discontinue IV fluids due to his past medical history of congestive heart failure with preserved ejection fraction. 1+ pedal edema evidenced. Follow-up proBNP. Normocytic normochromic anemia: Hemoglobin 11.2, hematocrit 33.4, MCV 92.9. Follow-up iron studies. 12/10/2024: Iron studies within reference range. Probably normocytic normochromic anemia secondary to anemia of chronic disease in the setting of CKD. Obstructive sleep apnea: CPAP at night. 12/10/2024: The patient states that he is uncomfortable with mask. His is bringing his own machine for nights. Code status: Full code DVT prophylaxis: SCDs and heparin. Analgesia/sedation: Morphine/[place] Line/tube: PIV GI prophylaxis: Protonix. Nutrition: Regular diet. PT: Ordered Prognosis: Guarded Disposition: We will continue medical management. Anticipated discharge tomorrow. Adelso Soria Internal Medicine Resident PSYCHIATRIC Date of Service: Dec 10, 2024 Billing Provider: RAJIV POMPA MD Common Visit Codes: [id number] INP/OBS CARE(HIGH) ADELSO HERNADEZ, RES Dec 10, 2024 14:00 RAJIV POMPA MD Dec 12, 2024 08:09
[2024-12-10 14:47] LABS: BILIRUBIN,URINE NEGATIVE (Neg); CLARITY,URINE CLEAR (Clear); COLOR,URINE YELLOW (Yellow); GLUCOSE, URINE NEGATIVE (Neg); KETONES,URINE NEGATIVE (Neg); LEUKOCYTE ESTERASE ,URINE SMALL (Neg); NITRITES, URINE NEGATIVE (Neg); OCCULT BLOOD,URINE MODERATE (Neg); PROTEIN,URINE TRACE mg/dl (Neg); UROBILINOGEN,URINE 0.2 E.U/dL (0.2-1.0)
[2024-12-10 14:49] LABS: UA COLLECTION TYPE NON-SPECIFIED
[2024-12-10 14:54] LABS: WBC,URINE 20-30 /HPF (0-4)
[2024-12-10 14:55] LABS: BACTERIA,URINE FEW /HPF (Neg); MUCUS STRANDS FEW /LPF (Neg); SQUAMOUS EPITHELIAL CELL,UR FEW /LPF (FEW)
[2024-12-10 15:18] LABS: TOTAL PROTEIN,URINE RANDOM 30.8 MG/DL
[2024-12-10] MEDS: celeCOXIB 100mg capsule PO SCH (19:23)
[2024-12-10] MEDS: LORazepam 1 MG tablet PO ONE (23:01)
[2024-12-11 05:39] LABS: BASOPHILS % (AUTO) 0.7 % (0-1); EOSINOPHILS # (AUTO) 0.4 X10'3 (0-0.9); EOSINOPHILS % (AUTO) 7.7 % (0-6); HEMATOCRIT 32.1 % (42.0-52.0); HEMOGLOBIN 10.7 g/dl (14.0-17.9); LYMPHOCYTES # (AUTO) 2.7 X10'3 (1.1-4.8); LYMPHOCYTES % (AUTO) 47.9 % (21-51); MEAN CORPUSCULAR HEMOGLOBIN 30.9 PG (27.0-31.0); MEAN CORPUSCULAR HGB CONC 33.2 g/dL (33.0-36.5); MEAN CORPUSCULAR VOLUME 93.2 FL (78-98); MEAN PLATELET VOLUME 9.1 FL (7.4-10.4); MONOCYTES # (AUTO) 0.6 X10'3 (0-0.9); MONOCYTES % (AUTO) 10.9 % (2-12); NEUTROPHILS # (AUTO) 1.9 X10'3 (1.8-7.7); NEUTROPHILS % (AUTO) 32.8 % (42-75); PLATELET COUNT 199 X10'3 (140-440); RED BLOOD COUNT 3.44 X10'6 (4.70-6.10); RED CELL DISTRIBUTION WIDTH 15.4 % (11.5-14.5); WHITE BLOOD COUNT 5.7 X10'3 (4.5-11.0)
[2024-12-11 06:00] VITALS: BP 169/87; PULSE 52; RESP 18; TEMP 98.5; O2SAT 96
[2024-12-11 06:03] LABS: ALANINE AMINOTRANSFERASE 29 U/L (12-78); ALBUMIN 2.6 G/DL (3.4-5.0); ALBUMIN/GLOBULIN RATIO 0.8 (1.1-1.5); ALKALINE PHOSPHATASE 110 IU/L (46-116); ANION GAP 9 (8-16); ASPARTATE AMINO TRANSFERASE 29 U/L (10-37); BILIRUBIN,TOTAL 0.2 MG/DL (0.1-1.0); BLOOD UREA NITROGEN 27 MG/DL (7-18); BUN/CREATININE RATIO 16.1 (10.0-20.0); CALCIUM 8.9 MG/DL (8.5-10.1); CHLORIDE 107 MMOL/L (99-107); CREATININE 1.68 MG/DL (0.60-1.10); GLUCOSE 94 MG/DL (70-104); MAGNESIUM 1.6 MG/DL (1.5-2.4); POTASSIUM 4.5 MMOL/L (3.5-5.1); SODIUM 141 MMOL/L (135-145); TOTAL CARBON DIOXIDE 24.7 MMOL/L (24-32); eCRCL 41 ML/MIN; eGFR 40 ML/MIN
[2024-12-11 08:00] VITALS: RESP 16; O2SAT 93
[2024-12-11] MEDS: HYDROcodone/acetaminophen 10/325mg tab PO PRN (09:17)
[2024-12-11 10:00] VITALS: BP 138/67; PULSE 60; RESP 16; TEMP 98.6; O2SAT 93
--- NOTE | 2024-12-11 14:05 | PROGRESS NOTE- Residence ---
Progress Note - Resident Providers to CC Resident Creating Document: ADELSO HERNADEZ, RES ~ Antibiotic Timeout Antibiotic Ordered?: Yes Subjective The patient has been evaluated at the bedside. The patient is currently awake, oriented to person, place and time. Still states pain at the level of the right hip well controlled with pain medication. Objective Vital Signs Date Time Temp Pulse Resp B/P (MAP) Pulse Ox O2 Delivery O2 Flow Rate FiO2 12/11/24 09:17 12 12/11/24 06:00 98.5 52 169/87 (114) 96 Room Air Physical exam: General: The patient is awake, alert, not agitated, oriented to person, place and time. HEENT: Conjunctive are pink, sclerae clear, no icterus, pupil is equal in both sides, reactive to light, no ear discharge, no pharyngeal erythema or an edema. Neck: Supple, no JVD, no lymphadenopathy and thyromegaly. Chest: Equal air entry on both lungs, no additional sounds no rhonchi no wheezing at the moment. Cardiovascular: S1-S2 regular sinus rhythm and, regular rate, no gallops, no rubs, no murmurs Abdomen: No visible peristalsis, Bowel sounds present on auscultation, soft, nontender, no guarding, no rigidity Extremities: No obvious deformities, 1+ pitting pedal edema bilaterally, capillary refill intact, peripheral pulsations are intact on both sides, tenderness in the level of the right hip. Presence of Marino catheter which was changed yesterday. Central Nervous System: No focal neurological deficits, no sensory weakness in all 4 extremities, strength 2/5 in bilateral lower extremities, could move all 4 extremities, 2+ deep tendon reflexes, negative Babinski. Musculoskeletal: No joint swelling, deformities, inflammations, and no scoliosis and back tenderness Skin: Warm and dry. Result Diagram: 12/11/24 0459 12/11/24 0459 Assessment Assessment 74-year-old male patient came to the hospital with chief complaint of altered level of consciousness. Plan Plan Metabolic encephalopathy likely secondary to urinary tract infection/cystitis- improved: Patient came to the hospital with chief complaint of altered level of consciousness. Urinalysis positive for urinary tract infection. Follow-up urine and blood cultures. Follow-up CRP, ESR, procalcitonin. Follow-up TSH. Ceftriaxone 1 g IV daily. Culturelle [address] mmu b.i.d. 12/10/2024: CT scan of the head: Showing no acute intracranial abnormality, chronic microvascular ischemic changes noted. Blood culture showing Gram-positive clusters in one sample possibly contaminated. We will follow up sensitivity. TSH within reference range. ESR 25, 0.75, mildly elevated. Procalcitonin within reference range. Continue ceftriaxone 1 g IV daily day 2. Continue Culturelle b.i.d. 12/11/2024: Urine culture no growth after one day. Pending sensitivity for blood culture. Continue ceftriaxone 1 g IV daily. Day 3. Continue the Culturelle b.i.d. Right hip pain: Severe right hip osteoarthritis with joint effusion POA: The patient came to the hospital with chief complaint of right hip pain. CT scan of the abdomen and pelvis: No renal, ureteral, or bladder calculus. No hydronephrosis of either kidney. The urinary bladder appears thick walled. Correlate clinically for possible cystitis. Severe right hip osteoarthritis with joint effusion. There is also right psoas bursitis. Orthopedic surgeon Dr. Panchal consulted: Recommends: No acute orthopedic interventions recommended at this time. His pain control is going to be difficult due to hislong term narcotic use. this patient may benifit from a theraputic hip aspiration / injection with a steroid done under flouroscopy by I.R.which can be done as an out patient. Continue pain management with celecoxib 100 mg b.i.d. [place] as needed. Possible Acute kidney injury on CKD stage IIIA likely secondary to dehydration: Creatinine 1.54, GFR 44, BUN/creatinine ratio 16.9. Baseline creatinine around 1.20. Follow-up urine lytes. NS at 80 mL/hour. 12/11/2024: Baseline creatinine 1.30. Pending proBNP. Fractional excretion of sodium 7.2%, fractional excretion of urea: 51.7% pointing towards intrinsic kidney injury. Normocytic normochromic anemia: Hemoglobin 11.2, hematocrit 33.4, MCV 92.9. Follow-up iron studies. 12/10/2024: Iron studies within reference range. Probably normocytic normochromic anemia secondary to anemia of chronic disease in the setting of CKD. Hypertension: The patient was recently discharged from [facility] on 10/04/2024 after hypertensive emergency. We will continue home medication: Losartan 100 mg daily. Labetalol 100 mg b.i.d.. Hydralazine 25 mg q.6h. Amlodipine 10 mg daily. Dementia: Memantine 10 mg daily. Donepezil 10 mg daily. Chronic congestive diastolic heart failure: Echocardiogram on 09/09/2024: Normal LV size and function. Mild concentric hypertrophy. LVEF is 60-65%. RV is normal size and function. Left atrium is moderately dilated. Trileaflet AV appears mildly sclerotic without stenosis. Trace insufficiency. Mild MV annular calcification without stenosis. Trace regurgitation. TV appears normal with trace regurgitation. Aortic root is dilated. Ascending aorta is dilated. Normal pericardium. No effusion. We will continue home medication: Currently on losartan 100 mg daily. Furosemide 20 mg IV daily. Metoprolol 50 mg b.i.d.. On 12/11/2024 the patient reported chest pain. EKG without signs of ST elevation, troponin levels within reference range. Stress test was recommended to the patient, the patient states that he does not want to proceed with Lexiscan. He understands risks and despite that he decided to not continue with Lexiscan. Currently on aspirin 81 mg daily. Atorvastatin 40 mg daily. Obstructive sleep apnea: The patient has his own CPAP for nights. Code status: Full code DVT prophylaxis: SCDs and heparin. Analgesia/sedation: Morphine/[place] Line/tube: PIV GI prophylaxis: Protonix. Nutrition: Regular diet. PT: Ordered Prognosis: Guarded Disposition: We will continue medical management. The patient does not want post-acute care. Anticipated discharge tomorrow. Adelso Soria Internal Medicine Resident [facility] Date of Service: Dec 11, 2024 Billing Provider: RAJIV POMPA MD Common Visit Codes: [id number] INP/OBS CARE(HIGH) ADELSO HERNADEZ, RES Dec 11, 2024 14:05 RAJIV POMPA MD Dec 12, 2024 08:10
[2024-12-11] MEDS ORDERED: baclofen 10mg tablet PO PRN (14:40)
[2024-12-11] MEDS: isosorbide mononitrate 30mg tab.SR.24H PO SCH (14:40)
[2024-12-11] MEDS: amLODIPine 5mg tablet PO SCH (16:21)
[2024-12-11] MEDS: memantine 5mg tablet PO SCH (16:22)
[2024-12-11] MEDS: donepezil 5mg tablet PO SCH (16:22)
[2024-12-11 18:00] VITALS: BP 137/75; PULSE 69; RESP 15; TEMP 98.3; O2SAT 95
[2024-12-11] MEDS: hydrALAZINE 25 MG tablet PO SCH (20:00)
[2024-12-11] MEDS: labetalol 100mg tablet PO SCH (20:00)
[2024-12-11] MEDS: tamsulosin 0.4mg capsule PO SCH (20:00)
[2024-12-11 22:00] VITALS: BP 159/80; PULSE 67; RESP 20; TEMP 98.7; O2SAT 96
[2024-12-11] MEDS: LORazepam 1 MG tablet PO ONE (22:26)
[2024-12-12 05:26] LABS: BASOPHILS % (AUTO) 0.8 % (0-1); EOSINOPHILS # (AUTO) 0.5 X10'3 (0-0.9); HEMATOCRIT 32.9 % (42.0-52.0); HEMOGLOBIN 11.1 g/dl (14.0-17.9); LYMPHOCYTES # (AUTO) 2.6 X10'3 (1.1-4.8); LYMPHOCYTES % (AUTO) 43.7 % (21-51); MEAN CORPUSCULAR HEMOGLOBIN 31.4 PG (27.0-31.0); MEAN CORPUSCULAR HGB CONC 33.8 g/dL (33.0-36.5); MEAN CORPUSCULAR VOLUME 92.7 FL (78-98); MEAN PLATELET VOLUME 9.4 FL (7.4-10.4); MONOCYTES # (AUTO) 0.6 X10'3 (0-0.9); MONOCYTES % (AUTO) 10.2 % (2-12); NEUTROPHILS # (AUTO) 2.2 X10'3 (1.8-7.7); NEUTROPHILS % (AUTO) 37.3 % (42-75); PLATELET COUNT 214 X10'3 (140-440); RED BLOOD COUNT 3.54 X10'6 (4.70-6.10); RED CELL DISTRIBUTION WIDTH 15.4 % (11.5-14.5); WHITE BLOOD COUNT 5.9 X10'3 (4.5-11.0)
[2024-12-12 05:52] LABS: ALANINE AMINOTRANSFERASE 30 U/L (12-78); ALBUMIN 2.9 G/DL (3.4-5.0); ALBUMIN/GLOBULIN RATIO 0.9 (1.1-1.5); ALKALINE PHOSPHATASE 117 IU/L (46-116); ANION GAP 8 (8-16); ASPARTATE AMINO TRANSFERASE 24 U/L (10-37); BILIRUBIN,TOTAL 0.2 MG/DL (0.1-1.0); BLOOD UREA NITROGEN 29 MG/DL (7-18); BUN/CREATININE RATIO 20.1 (10.0-20.0); CALCIUM 8.9 MG/DL (8.5-10.1); CHLORIDE 104 MMOL/L (99-107); CREATININE 1.44 MG/DL (0.60-1.10); GLUCOSE 94 MG/DL (70-104); MAGNESIUM 1.7 MG/DL (1.5-2.4); POTASSIUM 4.3 MMOL/L (3.5-5.1); SODIUM 136 MMOL/L (135-145); TOTAL CARBON DIOXIDE 23.9 MMOL/L (24-32); TOTAL PROTEIN 6.3 G/DL (6.4-8.2); eCRCL 48 ML/MIN; eGFR 48 ML/MIN
[2024-12-12 06:00] VITALS: BP 143/93; PULSE 61; RESP 16; TEMP 97.1; O2SAT 94
[2024-12-12 08:00] VITALS: RESP 21; O2SAT 94
[2024-12-12] MEDS: metoprolol succinate 25mg (24-HOUR) SR. Tablet PO SCH (08:00)
[2024-12-12] MEDS: allopurinol 300 MG tablet PO SCH (09:44)
[2024-12-12] MEDS: aspirin 81mg, enteric-coated 1 TAB TABLET.DR PO SCH (09:44)
[2024-12-12] MEDS: atorvastatin 20mg tablet PO SCH (09:44)
[2024-12-12 09:45] VITALS: RESP 14
[2024-12-12] MEDS ORDERED: LOSA50TA64 PO (10:27)
[2024-12-12] MEDS ORDERED: LACT1CAP26 PO (10:27)
[2024-12-12] MEDS ORDERED: CEFD300C3 PO (10:27)
[2024-12-12 10:28] VITALS: BP_SYST 143; PULSE 60
[2024-12-12] MEDS: losartan 50mg tablet PO SCH (10:28)
[2024-12-12] MEDS ORDERED: METO-395 PO (10:32)
--- NOTE | 2024-12-12 18:30 | DISCHARGE SUMMARY-Residence ---
Discharge Summary Providers to CC Resident Creating Document: VASQUEZ SANTIAGOCHRISTIE, RES ~ Discharge Summary Admission Diagnosis: ALOC Hospital Course DATE OF ADMISSION: 12/09/2024 DATE OF DISCHARGE: 12/12/2024 Discharge Diagnosis\Comment: Metabolic encephalopathy likely secondary to urinary tract infection/cystitis- improved Right hip pain Severe right hip osteoarthritis with joint effusion POA Possible Acute kidney injury on CKD stage IIIA likely secondary to dehydration Normocytic normochromic anemia Hypertension Dementia Chronic congestive diastolic heart failure Obstructive sleep apnea Operations\Procedures: None Consultants: Orthopedic surgeon, Dr. Panchal Complications: None Condition on DC: Stable New Medications: Cefdinir (Cefdinir) 300 Mg Capsule 1 CAP PO Q12H for 3 Days, #6 CAP 0 Refills Lactobacillus Rhamnosus (Culturelle) 10 Billion Cell Capsule 1 CAP PO BID for 30 Days, #60 CAP 0 Refills Changed Medications: Losartan Potassium (Losartan Potassium) 50 Mg Tablet 50 MG PO DAILY for 90 Days, #90 TAB (Changed from: 100 MG) Metoprolol Succinate (Metoprolol Succinate) 25 Mg Tab.sr.24h 1 TAB PO DAILY for 30 Days, #30 TAB 0 Refills (Changed from: Metoprolol Succinate 50 Mg Tab.sr.24h 1 Tab PO DAILY 30 Days #30 TAB) Continued Medications: Allopurinol (Allopurinol) 300 Mg Tablet 1 TAB PO DAILY for 30 Days, #30 TAB Amlodipine Besylate (Amlodipine Besylate) 5 Mg Tablet 10 MG PO DAILY for 90 Days, #90 TAB Aspirin (Ecotrin*) 81 Mg Tablet.dr 1 TAB PO DAILY for 90 Days, #90 TAB.SR Atorvastatin Calcium (Lipitor) 40 Mg Tablet 1 TAB PO DAILY for 30 Days, #30 TAB 0 Refills Baclofen (Baclofen) 10 Mg Tablet 1 TAB PO Q12H PRN for muscle spasms for 30 Days, #90 TAB 0 Refills Capsaicin (Arthritis Pain Relieving) 0.075 % Cream..g. BID Carboxymethyl/Glycerin/Poly80 (Refresh Optive Advanced Drops) 0.5 %-1 %-0.5 % Drops 1 DROP RIGHTEYE BID, #120 ML 0 Refills Carboxymethyl/Glycerin/Poly80 (Refresh Optive Advanced Drops) 0.5 %-1 %-0.5 % Drops 1 DROP LEFTEYE BID, #120 ML 0 Refills Cetirizine HCl (Cetirizine HCl) 10 Mg Tablet 1 TAB PO DAILY for allergy symptoms for 30 Days, #30 TAB 0 Refills Cholecalciferol (Vitamin D3) (Vitamin D3) 50 Mcg (2000 Unit) Capsule 2 CAP PO DAILY for 30 Days, #30 CAP 0 Refills Colchicine (Colchicine) 0.6 Mg Tablet 1 TAB PO Q12H for gout pain for 30 Days, #60 TAB 0 Refills Donepezil Hcl (Donepezil Hcl) 10 Mg Tablet 1 TAB PO DAILY for 90 Days, #90 TAB 0 Refills Hydralazine Hcl* (Apresoline*) 25 Mg Tablet 25 MG PO Q6H for 90 Days, #90 TAB Hydrocodone Bit/Acetaminophen (Hydrocodone-Apap 10-325 Tablet) 10mg/325mg Tablet 1 TAB PO QID PRN PRN for pain, TAB Hydrocodone Bit/Acetaminophen (Hydrocodone-Apap 10-325 Tablet) 10mg/325mg Tablet 1 TAB PO Q6H PRN for severe pain (7-10) for 7 Days, #28 TAB Isosorbide Mononitrate (Isosorbide Mononitrate Er) 30 Mg Tab.er.24h 1 TAB PO DAILY for 90 Days, #90 TAB Ketotifen Fumarate (Ketotifen Fumarate) 0.025 % (0.035 %) Drops 1 DROP RIGHTEYE Q12H, #5 ML 0 Refills Ketotifen Fumarate (Ketotifen Fumarate) 0.025 % (0.035 %) Drops 1 DROP LEFTEYE Q12H, #5 ML 0 Refills [lidocaine patch 5%] () 5% TOP Memantine HCl (Memantine HCl) 10 Mg Tablet 1 TAB PO DAILY for 90 Days, #90 TAB 0 Refills Omeprazole (Omeprazole) 20 Mg Capsule.dr 1 CAP PO BID for 30 Days, #30 CAP 0 Refills Sennosides (Senna) 8.6 Mg Tablet 2 TAB PO DAILY for constipation for 25 Days, #100 TAB 0 Refills Tamsulosin Hcl* (Flomax*) 0.4 Mg Cap.sr.24h 2 CAP PO DAILY for 30 Days, #30 CAP Discontinued Medications: Labetalol Hcl (Labetalol Hcl) 100 Mg Tablet 100 MG PO BID for 30 Days, #60 TAB Unable to Obtain Medications (Unable to Obtain Medications) Each Discharge Summary: HPI: PCP: [facility]. 74-year-old male patient with past medical history hypertension, chronic back pain obstructive sleep apnea, baseline dementia, came to the hospital with chief complaint of altered level of consciousness. (Anna Pineda) who was at the bedside states that the patient has been getting confused during the last two months on and off getting worse during the last week. Exacerbating even more during this morning, as per patient's the patient is completely disoriented, screaming of pain. The patient currently states that he has pain in the right hip with radiation to the right lower extremity. Currently denies any chest pain, shortness of breath, palpitations or urinary symptoms. Hospital course: 74 years old male patient came to the hospital after being noticed that he was confused by his . Upon arrival the patient was found with severe pain in the right hip. The patient was started on antibiotics, after urinalysis showed urinary tract infection/cystitis. Blood cultures turned back contaminated. Urine culture final did not show bacterial growth. Upon the next day of admission the patient was completely oriented to place, person and time. Stated that pain was controlled with pain medication. Dr. Panchal was consulted due to the severe arthritis with joint effusion noticed in the right hip, Dr. Panchal recommended follow-up as an outpatient for joint effusion and intra joint corticosteroid. The patient stated that he is not open for rehab service. Eager to be discharged home. The patient remained hemodynamically stable. The patient will be discharged home. Discharge course: The patient remained hemodynamically stable. The patient will be discharged with the following instructions: Follow up with your primary care physician, within 2 weeks. Follow up blood work (CBC and CMP) with your primary care physician within 2 weeks. Come back to the emergency department or call 911 if severe chest pain, shor tness of breath,palpitations, fever sensation is evidenced. Take cefdinir 1 tablet of 300 mg every 12 hours. Take culturelle 1 capsule every 12 hours. We are discontinuing your home medication labetalol due to soft blood pressure. We are decreasing your metoprolol to 25 mg 1 tablet daily. Continue the rest of your medication as recommended. Physical exam: General: The patient is awake, alert, not agitated, oriented to person, place and time. HEENT: Conjunctive are pink, sclerae clear, no icterus, pupil is equal in both sides, reactive to light, no ear discharge, no pharyngeal erythema or an edema. Neck: Supple, no JVD, no lymphadenopathy and thyromegaly. Chest: Equal air entry on both lungs, no additional sounds no rhonchi no wheezin g at the moment. Cardiovascular: S1-S2 regular sinus rhythm and, regular rate, no gallops, no rubs, no murmurs Abdomen: No visible peristalsis, Bowel sounds present on auscultation, soft, nontender, no guarding, no rigidity Extremities: No obvious deformities, 1+ pitting pedal edema bilaterally, capillary refill intact, peripheral pulsations are intact on both sides, tenderness in the level of the right hip. Presence of Marino catheter which was changed yesterday. Central Nervous System: No focal neurological deficits, no sensory weakness in all 4 extremities, strength 2/5 in bilateral lower extremities, could move all 4 extremities, 2+ deep tendon reflexes, negative Babinski. Musculoskeletal: No joint swelling, deformities, inflammations, and no scoliosis and back tenderness Skin: Warm and dry. Vital Signs Date Time Temp Pulse Resp B/P (MAP) Pulse Ox O2 Delivery O2 Flow Rate FiO2 12/12/24 10:28 60 12/12/24 09:45 14 12/12/24 08:00 94 Room Air 12/12/24 06:00 97.1 143/93 (110) Laboratory Tests Test 12/11/24 04:59 12/12/24 04:52 White Blood Count 5.7 X10'3 5.9 X10'3 Red Blood Count 3.44 X10'6 3.54 X10'6 Hemoglobin 10.7 g/dl 11.1 g/dl Hematocrit 32.1 % 32.9 % Mean Corpuscular Volume 93.2 FL 92.7 FL Mean Corpuscular Hemoglobin 30.9 PG 31.4 PG Mean Corpuscular Hemoglobin Concent 33.2 g/dL 33.8 g/dL Red Cell Distribution Width 15.4 % 15.4 % Platelet Count 199 X10'3 214 X10'3 Mean Platelet Volume 9.1 FL 9.4 FL Neutrophils (%) (Auto) 32.8 % 37.3 % Lymphocytes (%) (Auto) 47.9 % 43.7 % Monocytes (%) (Auto) 10.9 % 10.2 % Eosinophils (%) (Auto) 7.7 % 8.0 % Basophils (%) (Auto) 0.7 % 0.8 % Neutrophils # (Auto) 1.9 X10'3 2.2 X10'3 Lymphocytes # (Auto) 2.7 X10'3 2.6 X10'3 Monocytes # (Auto) 0.6 X10'3 0.6 X10'3 Eosinophils # (Auto) 0.4 X10'3 0.5 X10'3 Basophils # (Auto) 0.0 X10'3 0.0 X10'3 CBC Comment Sodium Level 141 MMOL/L 136 MMOL/L Potassium Level 4.5 MMOL/L 4.3 MMOL/L Chloride Level 107 MMOL/L 104 MMOL/L Carbon Dioxide Level 24.7 MMOL/L 23.9 MMOL/L Anion Gap 9 8 Blood Urea Nitrogen 27 MG/DL 29 MG/DL Creatinine 1.68 MG/DL 1.44 MG/DL Estimated GFR/1.73 m2 40 ML/MIN 48 ML/MIN BUN/Creatinine Ratio 16.1 20.1 Glucose Level 94 MG/DL 94 MG/DL Calcium Level 8.9 MG/DL 8.9 MG/DL Magnesium Level 1.6 MG/DL 1.7 MG/DL Total Bilirubin 0.2 MG/DL 0.2 MG/DL Aspartate Amino Transf (AST/SGOT) 29 U/L 24 U/L Alanine Aminotransferase (ALT/SGPT) 29 U/L 30 U/L Alkaline Phosphatase 110 IU/L 117 IU/L Total Protein 6.0 G/DL 6.3 G/DL Albumin 2.6 G/DL 2.9 G/DL Globulin 3.4 G/DL 3.4 G/DL Albumin/Globulin Ratio 0.8 0.9 Chemistry Comments *Problems/Diagnosis: (1) Osteoarthritis of right hip Status: Chronic (2) Urinary tract infection Status: Acute (3) Hip pain Status: Chronic (4) Metabolic encephalopathy Status: Acute Total Time Spent on D/C: > 30 Minutes Date of Service: Dec 12, 2024 Billing Provider: RAJIV POMPA MD Common Visit Codes: 39873-TIS/OBS DISCH DAY >30min JAQUELINJAQUELIN SANTIAGOCHRISTIE NANDO, RES Dec 12, 2024 18:29 RAJIV POMPA MD Dec 12, 2024 21:47
== END 2024-12-12 13:14 | disposition home health service (06) | DRG 689 ==
LOC: ER 12:56 → ED HOLD 16:42 → ORTHO 4S 19:10
PROVIDERS: ADMIT Internal Medicine; ATTEND Internal Medicine
DX: N30.90 Cystitis, unspecified without hematuria (principal); G93.41 Metabolic encephalopathy; I50.32 Chronic diastolic (congestive) heart failure; I13.0 Hypertensive heart and chronic kidney disease with heart failure and stage 1 through stage 4 chronic kidney disease, or unspecified chronic kidney disease; G89.4 Chronic pain syndrome; Z20.822 Contact with and (suspected) exposure to COVID-19; E86.0 Dehydration; D64.9 Anemia, unspecified; N18.31 Chronic kidney disease, stage 3a; G47.33 Obstructive sleep apnea (adult) (pediatric); M16.11 Unilateral primary osteoarthritis, right hip; Z79.82 Long term (current) use of aspirin; Z79.899 Other long term (current) drug therapy; Z90.49 Acquired absence of other specified parts of digestive tract
CPT/HCPCS: 36415; 70450; 71045; 74176; 80048; 80053; 80061; 80076; 81001; 82140; 82570; 82728; 83036; 83540; 83550; 83605; 83735; 83930; 83935; 84145; 84156; 84300; 84443; 84484; 84540; 85025; 85651; 86140; 87040; 87077; 87081; 87088; 87186; 87207; 87811; 92508; 92616; 93005; 96365; 96375; 97116; 97162; 99285; A4314; A4358; G0378; J0696; J1644; J1938; J2270; J2405; J2543; J7030; J7050